=== PATIENT | female | born 1970 | race Caucasian/White ===

== ENCOUNTER → 2018-01-18 12:15 | Outpatient (CLI) | payer BC, SELFPAY ==
--- NOTE | 2018-01-18 12:26 | XR_ITS ---
XR chest 2V HISTORY: ITS.REASON: ACUTE RESPIRATORY INFECTION ORDERING PHYSICIAN: Darlene Johnson PATIENT AGE: 47 years COMPARISON: 06/03/2014 FINDINGS: Unremarkable cardiovascular structures. Consolidation is present in the right lower lobe consistent with pneumonia. Chronic changes are present in the left lower lobe. Upper lobes are clear. No acute bony anomalies. IMPRESSION: Right lower lobe pneumonia
== END ==
PROVIDERS: PCP Family Medicine; Visit Provider Nurse Practitioner Family
DX: J22 Unspecified acute lower respiratory infection (principal)
CPT/HCPCS: 71046

== ENCOUNTER → 2018-01-21 15:06 | Outpatient (CLI) | payer BC, SELFPAY ==
--- NOTE | 2018-01-21 15:14 | CT_ITS ---
CT sinus wo con CLINICAL INDICATION: ITS.REASON: CHRONIC MAXILLARY SINUSITIS ORDERING PHYSICIAN: Flory Lora MD PATIENT AGE: 47 years TECHNIQUE:Axial, sagittal, and coronal images are generated and reviewed without contrast. All CT scans at the facility use one or more dose reduction, viz: automated exposure control; ma/kV adjustment per patient size (including targeted exams where dose is matched to indication; i.e. head); or iterative reconstruction technique. FINDINGS: There is moderate mucosal thickening involving the ethmoid sinuses on both sides greater along the posterior aspect of the ethmoids. Lobular mucosal thickening involves the floor the left maxillary sinus measuring up to 15 mm consistent with retention cysts. Tiny air-fluid level in the left maxillary sinus. Right maxillary sinus has an unremarkable appearance. The ostiomeatal complexes are patent. The sphenoid sinus and frontal sinus is unremarkable. No mastoid effusion. The middle ears are aerated. There is mild leftward nasal septal deviation. The TMJs and orbits have an unremarkable appearance. IMPRESSION: Bilateral ethmoid and left maxillary sinus disease as described above
== END ==
PROVIDERS: Family Provider Family Medicine; PCP Family Medicine; Visit Provider Family Medicine
DX: J32.0 Chronic maxillary sinusitis (principal)
CPT/HCPCS: 70486

== ENCOUNTER → 2018-01-27 16:37 | Outpatient (CLI) | payer BC, SELFPAY ==
--- NOTE | 2018-01-27 | XR_ITS ---
XR chest 2V HISTORY: ITS.REASON: SOA, COUGH, PNEUMONIA ORDERING PHYSICIAN: PATRICIA Dacosta PATIENT AGE: 47 years COMPARISON: 01/18/2018 FINDINGS: The cardiomediastinal silhouette and pulmonary vascularity are within normal limits. Right lower lobe infiltrate once again noted and may be slightly improved. Chronic changes are present in the left lung base. Upper lobes are clear. No obvious effusion. IMPRESSION: Persistent but slightly improved right lower lobe pneumonia
== END ==
PROVIDERS: PCP Family Medicine; Visit Provider Physician Assistant
DX: J18.9 Pneumonia, unspecified organism (principal)
CPT/HCPCS: 71046

== ENCOUNTER → 2018-02-11 11:09 | Outpatient (CLI) | payer BC, SELFPAY ==
--- NOTE | 2018-02-11 11:29 | XR_ITS ---
XR chest 2V HISTORY: ITS.REASON: PNEUMONIA ORDERING PHYSICIAN: PATRICIA Dacosta PATIENT AGE: 47 years COMPARISON: 01/27/2018 FINDINGS: The cardiomediastinal silhouette and pulmonary vascularity are within normal limits. Persistent chronic changes are noted in the left lower lobe. There remains patchy density in the right lung base consistent with residual atelectasis or infiltrate slightly improved. Upper lobes are clear. No acute bony anomalies. No effusion. IMPRESSION: Persistent but slightly improved right basilar airspace disease with chronic changes in the left lower lobe
== END ==
PROVIDERS: PCP Family Medicine; Visit Provider Physician Assistant
DX: J18.9 Pneumonia, unspecified organism (principal)
CPT/HCPCS: 71046; 87070; 87077; 87186; 87205

== ENCOUNTER → 2018-02-18 08:04 | Outpatient (CLI) | payer BC, SELFPAY ==
--- NOTE | 2018-02-18 08:10 | CT_ITS ---
CT chest wo con HISTORY: ITS.REASON: PNEUMONIA, COUGH, follow-up abnormal chest x-ray ORDERING PHYSICIAN: Flory Lora MD PATIENT AGE: 47 years COMPARISON: 02/11/2019, 06/11/2014 Technique: Axial images obtained. Sagittal and coronal reformatted images are also generated and reviewed. All CT scans at the facility use one or more dose reduction, viz: automated exposure control; ma/kV adjustment per patient size (including targeted exams where dose is matched to indication; i.e. head); or iterative reconstruction technique. FINDINGS: COMPARISON made to prior CT scan of 06/03/2014. There are small nodes in the mediastinum not significant change. Gas is present in the distal esophagus which is slightly distended and may be due to reflux. No mediastinal or hilar adenopathy or mass is evident. There is no evidence of pneumothorax or pneumomediastinum as was present on previous CT scan of 06/11/2014. There are scattered fibrotic changes in the right upper lobe and in the superior segment of the right lower lobe. There are peripheral infiltrates involving the lung bases with bronchial thickening and alveolar opacification having a reticulonodular interstitial fibrotic pattern as previously described but somewhat more pronounced.. These are chronic but have progressed compared to the previous exam. Patchy infiltrate is present within the superior segment of the lower lobes and within the right upper lobe anteriorly and right middle lobe. There is some mild subpleural opacity in the lingula. No effusions. Abdominal images are unremarkable. IMPRESSION: Progression of chronic lung disease with chronic bilateral lower lobe infiltrates with a reticular interstitial pattern and bronchial thickening. Progression of chronic interstitial pneumonitis is considered. Changes are present also in the right middle lobe and lingula.
== END ==
PROVIDERS: Family Provider Family Medicine; PCP Family Medicine; Visit Provider Family Medicine
DX: J18.9 Pneumonia, unspecified organism (principal)
CPT/HCPCS: 71250

== ENCOUNTER → 2018-03-10 12:30 | Outpatient (CLI) | payer BC, SELFPAY ==
[2018-03-10 14:00] LABS: Basophils % 0.2 % (0.1-2.0); Eosinophils % 0.4 % (0.1-12.0); Hematocrit 33.8 % (37.0-47.0); Hemoglobin 12.1 g/dL (12.2-16.2); Lymphocytes # 0.4 K/mm3 (0.7-4.5); Lymphocytes % 5.9 K/mm3 (10-50); Mean Corpuscular HGB Conc 35.7 g/dL (31.8-35.4); Mean Corpuscular Hemoglobin 35.2 pg (27.0-31.2); Mean Corpuscular Volume 98.8 fl (81-99); Mean Platelet Volume 7.6 fl (7.4-10.4); Monocytes # 0.2 K/mm3 (0.1-1.0); Monocytes % 2.9 % (1.7-9.3); Neutrophils # 5.6 K/mm3 (1.8-7.8); Neutrophils % 90.6 % (37.0-80.0); Platelet Count 177 K/mm3 (142-424); Red Blood Count 3.42 M/mm3 (4.20-5.40); Red Cell Distribution Width 16.8 % (11.5-17.5); Reticulocyte % (Auto) 1.5 % (0.9-3.2); White Blood Count 6.2 K/mm3 (4.8-10.8)
[2018-03-10 14:04] LABS: MANUAL DIFFERENTIAL MANUAL DIFFERENTIAL (MANUAL DIFF)
[2018-03-10 14:09] LABS: Alanine Aminotransferase 15 U/L (12-78); Albumin/Globulin Ratio 1.2 (1.1-1.8); Alkaline Phosphatase 67 U/L (46-116); Anion Gap 8.9 mEq/L (5-15); Aspartate Amino Transferase 8 U/L (15-37); Bilirubin,Total 0.3 mg/dL (0.2-1.0); Blood Urea Nitrogen 10 mg/dL (7-18); Calcium 9.7 mg/dL (8.5-10.1); Carbon Dioxide 30 mmol/L (21.0-32.0); Chloride 103 mmol/L (98-107); Creatinine,Serum 0.78 mg/dL (0.55-1.02); Estimated Glomerular Filt Rate 80 ml/min (>60); GFR (African American) 96 ML/MIN (>60); Globulin 3.3 gm/dl (1.3-3.2); Glucose 100 mg/dL (74-106); Potassium 4.9 mmoL/L (3.5-5.1); Sodium 137 mmol/L (136-145); Total Protein,Serum 7.3 gm/dL (6.4-8.2)
[2018-03-10 20:04] LABS: Lymphocytes % 12 % (10-50); Neutrophils % 88 % (42-76); Total Cells Counted 100
[2018-03-10 20:05] LABS: Ovalocytes 1+; Platelet Estimate Normal; Poikilocytosis 2+
[2018-03-10 20:07] LABS: Tear Drop Cells 1+
[2018-03-11 13:58] LABS: Erythropoietin 50.8 mIU/mL (2.6-18.5)
== END ==
PROVIDERS: Visit Provider Internal Medicine
DX: D64.9 Anemia, unspecified (principal)
CPT/HCPCS: 36415; 80053; 82668; 85007; 85025; 85044

== ENCOUNTER → 2018-10-20 12:48 | Outpatient (CLI) | payer BC, SELFPAY ==
--- NOTE | 2018-10-20 12:53 | MR_ITS ---
MR shoulder LT wo con HISTORY:Left shoulder pain with limited range of motion ITS.REASON: ACUTE PAIN OF LEFT SHOULDER ORDERING PHYSICIAN: Flory Lora MD PATIENT AGE: 48 years Comparison: None TECHNIQUE: Standard multiplanar multiecho sequences are performed without contrast. FINDINGS: There is thickening of the supraspinatus tendon with discontinuity of the fibers superiorly and distally consistent with supraspinatus tendon tear. The infraspinatus, subscapularis, teres minor tendons appear intact. There is mild thickening of the subscapularis tendon. There is an oval area of slight decreased T2 signal in the infra-acromial region measuring 13 x 4 mm. An additional oval area of decreased T2 signal is present along the distal aspect of the supraspinatus tendon at 16 x 5 mm. These are of uncertain etiology. The bicipital tendon is in place. No obvious labral tear. No significant effusion. No obvious fracture. IMPRESSION: There does appear to be a full-thickness tear involving the posterior aspect of the supraspinatus tendon and the distal aspect of the supraspinatus tendon. Decreased T2 signal is noted in the infra-acromial region as described above. Etiology is uncertain. Has patient had any type of shoulder joint injection? Scar tissue is considered. Indirect MR arthrography without and with IV contrast may be of further value.
== END ==
PROVIDERS: PCP Family Medicine; Visit Provider Family Medicine
DX: M25.512 Pain in left shoulder (principal)
CPT/HCPCS: 73221

== ENCOUNTER → 2018-10-29 09:55 | Outpatient (CLI) | payer BC, SELFPAY ==
--- NOTE | 2018-10-29 10:02 | XR_ITS ---
XR shoulder LT min 2V HISTORY: Left shoulder pain ITS.REASON: grashy, scapular y and axillary views ORDERING PHYSICIAN: Valeria Parsons MD PATIENT AGE: 48 years Comparison: None FINDINGS: No fracture or dislocation. No lytic or blastic change. There is normal mineralization. The joint spaces are well-preserved. No significant degenerative/arthritic changes. No erosive changes evident. IMPRESSION: Negative, no acute finding
== END ==
PROVIDERS: PCP Family Medicine; Visit Provider Orthopaedic Surgery
DX: M25.512 Pain in left shoulder (principal)
CPT/HCPCS: 73030

== ENCOUNTER → 2018-11-26 10:38 | Outpatient (CLI) | payer BC, SELFPAY ==
--- NOTE | 2018-11-26 10:43 | XR_ITS ---
XR chest 2V HISTORY: Cough, abnormal breath sounds ITS.REASON: RALES ORDERING PHYSICIAN: PATRICIA Dacosta PATIENT AGE: 48 years COMPARISON: 02/11/2018 FINDINGS: The cardiomediastinal silhouette and pulmonary vascularity are within normal limits. Chronic changes are present in the left lung base. Patchy density is present in the right lung base medially may be due to a small area of pneumonia. Remaining lungs are clear. No acute bony abnormalities. IMPRESSION: Right basilar infiltrate
== END ==
PROVIDERS: PCP Family Medicine; Visit Provider Physician Assistant
DX: R09.89 Other specified symptoms and signs involving the circulatory and respiratory systems (principal)
CPT/HCPCS: 71046

== ENCOUNTER → 2019-12-19 14:35 | Outpatient (CLI) | payer BC, SELFPAY ==
--- NOTE | 2019-12-19 14:39 | XR_ITS ---
PROCEDURE: XR CHEST 2V CLINICAL HISTORY: INTERSTITIAL LUNG DISEASE Cough and hoarseness COMPARISON: CXR2V XR chest 2V from 01/27/2018 CXR2V XR chest 2V from 02/11/[address] chest wo con from 02/18/2018 CXR2V XR chest 2V from 11/26/2018 FINDINGS: The cardiomediastinal silhouette and pulmonary vascularity are within normal limits. There are atelectatic changes in both lung bases. No lobar consolidation or collapse and no significant change from 11/26/2018. No acute bony abnormalities. IMPRESSION: Bibasilar atelectasis or fibrosis not significantly changed Dictated by: Blaine Tijerina MD 12/19/2019 15:13 Electronically signed by Blaine Tijerina MD in [place] 12/19/2019 15:13
== END ==
PROVIDERS: PCP Family Medicine; Visit Provider Family Medicine
DX: J84.9 Interstitial pulmonary disease, unspecified (principal)
CPT/HCPCS: 71046

== ENCOUNTER → 2020-06-18 15:09 | Outpatient (CLI) | payer BC, SELFPAY ==
--- NOTE | 2020-06-18 15:14 | US_ITS ---
PROCEDURE: US ABDOMEN LIMITED CLINICAL INDICATION: SUPRAPUBIC TENDERNESS Full mass in the left superior pubic region COMPARISON: No exams were available for comparison FINDINGS: In the left suprapubic area there is an unusual area of echogenicity oval in nature measuring 1.5 x 0.7 cm. This is isodense slightly hyperechoic with a central area of decreased echogenicity. There may be a track leading to the subcutaneous tissues from this region. IMPRESSION: Usual area of echogenicity in the subcutaneous region in the left suprapubic area with questionable track. This could be due to an atypical lipoma with central liquefaction. Sebaceous cyst or abscess is also consideration. CT or MRI may provide further evaluation if clinically desired. Dictated by: Blaine Tijerina MD 06/18/2020 16:28 Blaine Tijerina MD in [place] 06/18/2020 16:28
== END ==
PROVIDERS: PCP Family Medicine; Visit Provider Nurse Practitioner Family
DX: R10.819 Abdominal tenderness, unspecified site (principal)
CPT/HCPCS: 76705

== ENCOUNTER → 2021-05-01 16:19 | Outpatient (CLI) | payer BC, SELFPAY ==
[2021-05-01 16:44] LABS: Adenovirus,PCR Not Detected (NotDetected); Bordetella Pertussis Not Detected (NotDetected); Chlamydophila Pneumoniae, PCR Not Detected (NotDetected); Coronavirus 19, PCR Not Detected (NotDetected); Coronavirus 229E Not Detected (NotDetected); Coronavirus NL63 Not Detected (NotDetected); Coronavirus OC43 Not Detected (NotDetected); Coronovirus HKU1,PCR Not Detected (NotDetected); Human Metapneumovirus Not Detected (NotDetected); Influenza A, PCR Not Detected (NotDetected); Influenza AH1, 2009 Not Detected (NotDetected); Influenza AH1, PCR Not Detected (NotDetected); Influenza AH3,PCR Not Detected (NotDetected); Influenza B, PCR Not Detected (NotDetected); Mycoplasma Pneumoniae, PCR Not Detected (NotDetected); Parainfluenza 1, PCR Not Detected (NotDetected); Parainfluenza 2, PCR Not Detected (NotDetected); Parainfluenza 3, PCR Not Detected (NotDetected); Parainfluenza 4, PCR Not Detected (NotDetected); Rhinovirus/Enterovirus Not Detected (NotDetected)
[2021-05-01 17:06] LABS: Basophils # 0.1 K/mm3 (0-0.2); Basophils % 0.7 % (0.1-2.0); Eosinophils % 0.3 % (0.1-12.0); Hematocrit 36.6 % (37.0-47.0); Hemoglobin 12.4 g/dL (12.2-16.2); Lymphocytes # 1.2 K/mm3 (0.7-4.5); Lymphocytes % 13.3 % (10-50); Mean Corpuscular Hemoglobin 26.9 pg (27.0-31.2); Mean Corpuscular Volume 79.1 fl (81-99); Mean Platelet Volume 7.4 fl (7.4-10.4); Monocytes # 0.5 K/mm3 (0.1-1.0); Monocytes % 5.2 % (1.7-9.3); Neutrophils # 7.1 K/mm3 (1.8-7.8); Neutrophils % 80.4 % (37.0-80.0); Platelet Count 294 K/mm3 (142-424); Red Blood Count 4.62 M/mm3 (4.20-5.40); Red Cell Distribution Width 15.4 % (11.5-17.5); White Blood Count 8.9 K/mm3 (4.8-10.8)
[2021-05-02 07:11] LABS: Respiratory Syncytial Virus Detected (NotDetected)
== END ==
PROVIDERS: PCP Family Medicine; Visit Provider Physician Assistant
DX: Z20.822 Contact with and (suspected) exposure to COVID-19 (principal); B97.4 Respiratory syncytial virus as the cause of diseases classified elsewhere
CPT/HCPCS: 36415; 85025; 87581; 87633; 87798

== ENCOUNTER 2021-06-02 14:16 | Emergency (ER) | payer BC, SELFPAY ==
[2021-06-02 16:48] VITALS: BP 154/90; PULSE 91; RESP 19; TEMP 37.2; O2SAT 99; BMI 29.0
--- NOTE | 2021-06-02 17:37 | HMH.EDUTC ---
[facility] [place] Disposition Clinical Impression: Exposure to COVID-19 virus Sinusitis Qualifiers: Sinusitis location: unspecified location Chronicity: unspecified Qualified Code(s): J32.9 - Chronic sinusitis, unspecified Disposition: Home, Self-Care Condition on Discharge: Good Instructions: DI for COVID-19 (Suspected or Confirmed ), Preventing the Spread of Coronavirus Discharge Instructions Additional Instructions: *Monitor Temp, Over the counter Motrin or Tylenol as directed/as needed Tylenol every 4 hours and Motrin every 6 hours (as long as your family doctor has told you that you can take it) for fever or pain. and straight to ER if unable to lower temp less than 101.0 after medication given *Warm salt water gargles may help to soothe the throat *Throat Lozenges *Warm fluids like tea with honey may help to soothe the throat *Sleep elevated *Humidifier/Vaporizer Make sure to inform the Warfarin Clinic tomorrow about you being on Antibiotics so they can adjust your medication if needed Follow up IMMEDIATELY for new or worsening symptoms or no Noticeable improvement over the next 48-72 hours. 911 for difficulty breathing or swallowing You were tested for today for COVID19 your test result should be back in the next 24-48 hours, You was given handout for instructions to log onto the [facility] Portal to view your result if you are unable to log on you may call You was given a handout with instructions for Self Quarantine and Self isolation for while you wait on test results and what to do if they are positive If you are positive the Health Dept will be contacting you also Make sure to take your Vitamins Vit. C Vit D and Zinc if you can take them Prescriptions: Benzonatate [Tessalon Perle 100mg Cap*] 100 mg PO TID PRN #30 cap PRN Reason: Cough Transmission Status: Pending to [id number] Azithromycin [Z-Yoel 250mg Tab] 250 mg PO DIRECTED #6 tab [facility]: [id number] Referrals: Flory Lora MD [Primary Care Provider] - As needed Forms: Work/School Release Time of Disposition: 17:52 Medical Decision Making - Cristian Inquiry Pt receiving controlled substance: No Cristian was queried for this patient: No Vital Signs: 06/02/21 16:48 Temperature 99.0 F Temperature Source Oral Pulse Rate [Right Brachial] 91 H Respiratory Rate 19 Blood Pressure [Right Arm] 154/90 H Blood Pressure Mean [Right Arm] 111 Blood Pressure Source [Right Arm] Automatic Cuff Blood Pressure Position [Right Arm] Sitting 02 Sat by Pulse Oximetry 99 Oxygen Delivery Method Room Air Orders (Tests/Meds): ORDERS Category Date Time Status Covid-19 Nasal PCR ([facility]) Routine Lab 06/02/21 16:18 Received [facility] [place] HPI - General Stated complaint: covid test, exposure Time Seen by Provider: 06/02/21 17:37 Mode of Arrival: Ambulatory Source of Information: Patient Description of Symptoms (Recalled from Triage Doc. by RN): covid test, chest congestion, cough, fatigue, headache HEENT Symptoms (Recalled from RN notes): Yes Resp Symptoms (Recalled from RN notes): Yes Skin Symptoms (Recalled from RN notes): No MS Symptoms (Recalled from RN notes): No Functional Status (Recalled from RN notes): yes - History of Present Illness Provider Complaint: Patient states that recently tested positive for COVID states that she has been having sinus pain and pressure along with COVID symptoms such as cough,chest congestion, scratchy throat and body aches with nagging cough States that today she was feeling bad still so she came in to get checked - Related Data Home Medications Medication Instructions Recorded Confirmed calcium carbonate 600 mg calcium 600 mg PO BID tab 03/10/18 10/13/19 (1,500 mg) tablet ezetimibe 10 mg tablet 10 mg PO DAILY tab 10/29/18 10/13/19 mycophenolate mofetil 500 mg tablet 500 mg PO BID 10/29/18 10/13/19 omeprazole 20 mg capsule,delayed 20 mg PO DAILY 90 Days #90 cap
[2021-06-02 18:09] VITALS: BP 154/90; PULSE 91; RESP 19; TEMP 37.2; O2SAT 99
== END 2021-06-02 18:09 | disposition home or self-care (01) ==
PROVIDERS: Emergency Provider Nurse Practitioner; PCP Family Medicine
DX: U07.1 COVID-19 (principal); J32.9 Chronic sinusitis, unspecified; Z87.442 Personal history of urinary calculi; E78.5 Hyperlipidemia, unspecified; I10 Essential (primary) hypertension; Z79.899 Other long term (current) drug therapy; Z88.8 Allergy status to other drugs, medicaments and biological substances
CPT/HCPCS: 99202; C9803; G0463; U0003; U0005

== ENCOUNTER → 2021-06-14 15:05 | Outpatient (CLI) | payer BC, SELFPAY ==
--- NOTE | 2021-06-14 15:22 | XR_ITS ---
PROCEDURE: XR CHEST 2V CLINICAL HISTORY: HX OF COVID 19 COMPARISON: CR CXR2V XR chest 2V from 02/11/[address] chest wo con from 02/18/2018 CR CXR2V XR chest 2V from 11/26/2018 CR XR CHEST 2V from 12/19/2019 FINDINGS: The cardiomediastinal silhouette and pulmonary vascularity are within normal limits. There are chronic changes in the lung bases on both sides. No acute bony abnormalities. IMPRESSION: Chronic changes in the lung bases otherwise negative Dictated by: Blaine Tijerina MD 06/14/2021 15:58 Blaine Tijerina MD in [place] 06/14/2021 15:58
[2021-06-14 15:33] LABS: Basophils % 0.3 % (0.1-2.0); Eosinophils # 0.1 K/mm3 (0.0-0.4); Eosinophils % 0.9 % (0.1-12.0); Hematocrit 45.5 % (37.0-47.0); Hemoglobin 14.8 g/dL (12.2-16.2); Lymphocytes # 1.3 K/mm3 (0.7-4.5); Lymphocytes % 8.9 % (10-50); Mean Corpuscular HGB Conc 32.4 g/dL (31.8-35.4); Mean Corpuscular Hemoglobin 27.6 pg (27.0-31.2); Mean Corpuscular Volume 85.3 fl (81-99); Mean Platelet Volume 6.5 fl (7.4-10.4); Monocytes # 0.6 K/mm3 (0.1-1.0); Monocytes % 4.2 % (1.7-9.3); Neutrophils # 12.6 K/mm3 (1.8-7.8); Neutrophils % 85.8 % (37.0-80.0); Platelet Count 413 K/mm3 (142-424); Red Blood Count 5.34 M/mm3 (4.20-5.40); Red Cell Distribution Width 14.9 % (11.5-17.5); White Blood Count 14.7 K/mm3 (4.8-10.8)
[2021-06-14 15:35] LABS: MANUAL DIFFERENTIAL MANUAL DIFFERENTIAL (MANUAL DIFF)
[2021-06-14 16:23] LABS: Chloride 99 mmol/L (98-107)
[2021-06-14 16:24] LABS: Potassium 3.8 mmoL/L (3.5-5.1); Sodium 141 mmol/L (136-145)
[2021-06-14 16:26] LABS: Amylase 86 U/L (30-110); Anion Gap 12.8 mEq/L (5-15); Blood Urea Nitrogen 19 mg/dl (7-17); Carbon Dioxide 33 mmol/L (22.0-30.0); Estimated Glomerular Filt Rate 76 ml/min (>60); GFR (African American) 92 ML/MIN (>60)
[2021-06-14 16:27] LABS: Alanine Aminotransferase 48 U/L (12-78); Albumin Level 3.9 g/dl (3.5-5.0); Albumin/Globulin Ratio 1.5 (1.1-1.8); Alkaline Phosphatase 79 U/L (38-126); Aspartate Amino Transferase 26 U/L (14-36); Bilirubin,Total 0.4 mg/dl (0.2-1.3); Calcium 9.6 mg/dl (8.4-10.2); Globulin 2.6 g/dL (1.3-3.2); Glucose 100 mg/dl (74-100); Lipase 275 U/L (23-300); Total Protein,Serum 6.5 g/dl (6.3-8.2)
[2021-06-14 18:11] LABS: Lymphocytes % 11 % (10-50); Monocytes % 3 % (2-9); Neutrophils % 80 % (42-76); Platelet Estimate Normal; RBC Morphology Normal; Total Cells Counted 100
== END ==
PROVIDERS: Visit Provider Physician Assistant
DX: K52.9 Noninfective gastroenteritis and colitis, unspecified (principal); Z86.16 Personal history of COVID-19
CPT/HCPCS: 36415; 71046; 80053; 82150; 83690; 85007; 85025

== ENCOUNTER → 2021-08-07 11:53 | Outpatient (CLI) | payer BC, SELFPAY ==
[2021-08-07 12:02] LABS: Microscopic, Urine URINE MICROSCOPIC (MICROSCOPIC)
[2021-08-07 12:21] LABS: Appearance,Urine CLEAR (Clear); Bilirubin,Urine Negative (Negative); Blood, Urine 1+ (Negative); Color,Urine YELLOW (Yellow); Glucose,Urine (UA) Negative (Negative); Ketones,Urine Negative (Negative); Leukocyte Esterase,Urine 2+ (Negative); Nitrate,Urine Negative (Negative); Protein,Urine Negative (Negative); Specific Gravity, Urine >= 1.030 (1.005-1.030); Urobilinogen,Urine 0.2 EU/dl (0.2)
[2021-08-07 12:23] LABS: Basophils % 0.5 % (0.1-2.0); Eosinophils # 0.2 K/mm3 (0.0-0.4); Eosinophils % 2.3 % (0.1-12.0); Hemoglobin 13.1 g/dL (12.2-16.2); Lymphocytes # 1.2 K/mm3 (0.7-4.5); Lymphocytes % 16.6 % (10-50); Mean Corpuscular HGB Conc 32.7 g/dL (31.8-35.4); Mean Corpuscular Hemoglobin 27.8 pg (27.0-31.2); Mean Corpuscular Volume 84.8 fl (81-99); Monocytes # 0.6 K/mm3 (0.1-1.0); Monocytes % 7.7 % (1.7-9.3); Neutrophils # 5.4 K/mm3 (1.8-7.8); Platelet Count 327 K/mm3 (142-424); Red Blood Count 4.72 M/mm3 (4.20-5.40); Red Cell Distribution Width 15.4 % (11.5-17.5); White Blood Count 7.4 K/mm3 (4.8-10.8)
[2021-08-07 12:46] LABS: Chloride 103 mmol/L (98-107); Potassium 3.6 mmoL/L (3.5-5.1); Sodium 142 mmol/L (136-145)
[2021-08-07 12:48] LABS: Alanine Aminotransferase 12 U/L (12-78); Alkaline Phosphatase 66 U/L (38-126); Aspartate Amino Transferase 20 U/L (14-36); Bilirubin,Total 0.3 mg/dl (0.2-1.3); Blood Urea Nitrogen 10 mg/dl (7-17); Estimated Glomerular Filt Rate 66 ml/min (>60); GFR (African American) 80 ML/MIN (>60)
[2021-08-07 12:49] LABS: Albumin Level 4.2 g/dl (3.5-5.0); Albumin/Globulin Ratio 1.9 (1.1-1.8); Anion Gap 9.6 mEq/L (5-15); Calcium 9.1 mg/dl (8.4-10.2); Carbon Dioxide 33 mmol/L (22.0-30.0); Globulin 2.2 g/dL (1.3-3.2); Glucose 94 mg/dl (74-100); Total Protein,Serum 6.4 g/dl (6.3-8.2)
[2021-08-07 12:54] LABS: C-Reactive Protein 2.9 mg/L (0-4)
[2021-08-07 13:05] LABS: Erythrocyte Sedimentation Rate 20 mm/hr (0-20)
[2021-08-08 07:01] LABS: Complement C3 145 mg/dL (82-167)
== END ==
PROVIDERS: Visit Provider Nurse Practitioner Family
DX: M32.9 Systemic lupus erythematosus, unspecified (principal); I73.00 Raynaud's syndrome without gangrene; Z79.899 Other long term (current) drug therapy
CPT/HCPCS: 36415; 80053; 81001; 85025; 85651; 86140; 86161; 87086

== ENCOUNTER → 2021-11-29 07:18 | Outpatient (CLI) | payer BC, SELFPAY ==
[2021-11-29 07:26] LABS: Microscopic, Urine URINE MICROSCOPIC (MICROSCOPIC)
[2021-11-29 07:47] LABS: Basophils # 0.1 K/mm3 (0-0.2); Eosinophils # 0.1 K/mm3 (0.0-0.4); Eosinophils % 1.9 % (0.1-12.0); Hematocrit 39.3 % (37.0-47.0); Lymphocytes # 1.4 K/mm3 (0.7-4.5); Lymphocytes % 26.9 % (10-50); Mean Corpuscular Hemoglobin 27.2 pg (27.0-31.2); Mean Corpuscular Volume 82.5 fl (81-99); Mean Platelet Volume 8.4 fl (7.4-10.4); Monocytes # 0.4 K/mm3 (0.1-1.0); Monocytes % 7.7 % (1.7-9.3); Neutrophils # 3.3 K/mm3 (1.8-7.8); Neutrophils % 62.4 % (37.0-80.0); Platelet Count 332 K/mm3 (142-424); Red Blood Count 4.76 M/mm3 (4.20-5.40); Red Cell Distribution Width 15.9 % (11.5-17.5); White Blood Count 5.3 K/mm3 (4.8-10.8)
[2021-11-29 07:51] LABS: Appearance,Urine CLEAR (Clear); Bilirubin,Urine Negative (Negative); Blood, Urine 2+ (Negative); Color,Urine YELLOW (Yellow); Glucose,Urine (UA) Negative (Negative); Ketones,Urine Negative (Negative); Leukocyte Esterase,Urine Negative (Negative); Nitrate,Urine Negative (Negative); Protein,Urine Negative (Negative); Urobilinogen,Urine 0.2 EU/dl (0.2)
[2021-11-29 08:19] LABS: Bacteria,Urine Trace /lpf
[2021-11-29 08:37] LABS: Chol/HDL Ratio 3.2 (1-3.5); Cholesterol 167 mg/dl (140-200); HDL Cholesterol 52 mg/dl (40-60); Triglycerides 140 mg/dl (30-150); VLDL Cholesterol 28 mg/dL (0-40)
[2021-11-29 08:47] LABS: Direct LDL Cholesterol 78.44 mg/dL (100-129)
[2021-11-29 09:25] LABS: Vitamin B12 979 pg/mL (239-931)
[2021-11-29 12:25] LABS: Erythrocyte Sedimentation Rate 53 mm/hr (0-20)
[2021-11-29 13:41] LABS: Alanine Aminotransferase 24 U/L (12-78); Albumin Level 3.9 g/dl (3.5-5.0); Albumin/Globulin Ratio 1.8 (1.1-1.8); Alkaline Phosphatase 59 U/L (38-126); Anion Gap 12.8 mEq/L (5-15); Aspartate Amino Transferase 24 U/L (14-36); Bilirubin,Total 0.3 mg/dl (0.2-1.3); Blood Urea Nitrogen 10 mg/dl (7-17); Calcium 8.9 mg/dl (8.4-10.2); Carbon Dioxide 26 mmol/L (22.0-30.0); Chloride 104 mmol/L (98-107); Estimated Glomerular Filt Rate 76 ml/min (>60); GFR (African American) 92 ML/MIN (>60); Globulin 2.2 g/dL (1.3-3.2); Glucose 84 mg/dl (74-100); Potassium 3.8 mmoL/L (3.5-5.1); Sodium 139 mmol/L (136-145); Total Protein,Serum 6.1 g/dl (6.3-8.2)
[2021-11-29 13:46] LABS: C-Reactive Protein 2.2 mg/L (0-4)
[2021-11-30 10:15] LABS: Complement C3 138 mg/dL (82-167)
[2021-11-30 14:12] LABS: Anti-DNA (DS) Ab Qn <1 IU/mL (0-9)
== END ==
PROVIDERS: Nurse Practitioner Family; Visit Provider Physician Assistant
DX: I73.00 Raynaud's syndrome without gangrene (principal); J84.9 Interstitial pulmonary disease, unspecified; M32.9 Systemic lupus erythematosus, unspecified; I10 Essential (primary) hypertension; E78.2 Mixed hyperlipidemia; E53.8 Deficiency of other specified B group vitamins; D64.9 Anemia, unspecified; Z79.899 Other long term (current) drug therapy
CPT/HCPCS: 36415; 80053; 80061; 81001; 82607; 85025; 85651; 86140; 86161; 86225

== ENCOUNTER → 2022-05-23 07:31 | Outpatient (CLI) | payer BC, SELFPAY ==
[2022-05-23 07:38] LABS: Microscopic, Urine URINE MICROSCOPIC (MICROSCOPIC)
[2022-05-23 08:10] LABS: Basophils # 0.1 K/mm3 (0-0.2); Basophils % 1.3 % (0.1-2.0); Eosinophils # 0.2 K/mm3 (0.0-0.4); Eosinophils % 2.6 % (0.1-12.0); Hematocrit 39.8 % (37.0-47.0); Hemoglobin 12.9 g/dL (12.2-16.2); Lymphocytes # 1.7 K/mm3 (0.7-4.5); Lymphocytes % 26.9 % (10-50); Mean Corpuscular HGB Conc 32.4 g/dL (31.8-35.4); Mean Corpuscular Hemoglobin 26.9 pg (27.0-31.2); Mean Corpuscular Volume 83.1 fl (81-99); Mean Platelet Volume 7.5 fl (7.4-10.4); Monocytes # 0.5 K/mm3 (0.1-1.0); Monocytes % 7.8 % (1.7-9.3); Neutrophils % 61.5 % (37.0-80.0); Platelet Count 303 K/mm3 (142-424); Red Blood Count 4.78 M/mm3 (4.20-5.40); Red Cell Distribution Width 15.8 % (11.5-17.5); White Blood Count 6.5 K/mm3 (4.8-10.8)
[2022-05-23 08:16] LABS: INR 2.94 (0.9-1.1); Prothrombin Time 29.9 seconds (10.1-12.5)
[2022-05-23 09:31] LABS: Alanine Aminotransferase 21 U/L (12-78); Albumin Level 3.9 g/dl (3.5-5.0); Albumin/Globulin Ratio 1.6 (1.1-1.8); Alkaline Phosphatase 80 U/L (38-126); Anion Gap 8.7 mEq/L (5-15); Aspartate Amino Transferase 25 U/L (14-36); Blood Urea Nitrogen 15 mg/dl (7-17); Calcium 9.5 mg/dl (8.4-10.2); Carbon Dioxide 32 mmol/L (22.0-30.0); Chloride 102 mmol/L (98-107); Estimated Glomerular Filt Rate 58 ml/min (>60); GFR (African American) 71 ML/MIN (>60); Globulin 2.4 g/dL (1.3-3.2); Glucose 90 mg/dl (74-100); Potassium 3.7 mmoL/L (3.5-5.1); Sodium 139 mmol/L (136-145); Total Protein,Serum 6.3 g/dl (6.3-8.2)
[2022-05-23 09:36] LABS: C-Reactive Protein 2.6 mg/L (0-4)
[2022-05-23 09:42] LABS: Bilirubin,Total < 0.1 mg/dl (0.2-1.3)
[2022-05-23 09:51] LABS: Erythrocyte Sedimentation Rate 14 mm/hr (0-30)
[2022-05-23 11:41] LABS: Appearance,Urine SL CLOUDY (Clear); Bilirubin,Urine Negative (Negative); Blood, Urine 2+ (Negative); Color,Urine YELLOW (Yellow); Glucose,Urine (UA) Negative (Negative); Ketones,Urine Negative (Negative); Leukocyte Esterase,Urine 2+ (Negative); Nitrate,Urine Negative (Negative); Protein,Urine Negative (Negative); Urobilinogen,Urine 0.2 EU/dl (0.2)
[2022-05-23 12:17] LABS: Bacteria,Urine Trace /lpf; WBC,Urine Occasional #/hpf (0-3)
== END ==
PROVIDERS: Family Medicine; PCP Physician Assistant; Visit Provider Internal Medicine Rheumatology
DX: M32.8 Other forms of systemic lupus erythematosus (principal); D68.51 Activated protein C resistance; Z51.81 Encounter for therapeutic drug level monitoring; Z79.01 Long term (current) use of anticoagulants; Z79.899 Other long term (current) drug therapy
CPT/HCPCS: 36415; 80053; 81001; 85025; 85610; 85651; 86140; 87086; 87088; 87186

== ENCOUNTER → 2022-08-13 14:56 | Outpatient (CLI) | payer BC, SELFPAY ==
[2022-08-13 15:40] LABS: Coronavirus 19, PCR Not Detected (NotDetected); Influenza B, PCR Not Detected (NotDetected)
[2022-08-13 15:57] LABS: Basophils # 0.1 K/mm3 (0-0.2); Basophils % 0.7 % (0.1-2.0); Eosinophils % 0.6 % (0.1-12.0); Hematocrit 39.9 % (37.0-47.0); Hemoglobin 12.6 g/dL (12.2-16.2); Lymphocytes # 0.7 K/mm3 (0.7-4.5); Mean Corpuscular HGB Conc 31.5 g/dL (31.8-35.4); Mean Corpuscular Hemoglobin 26.7 pg (27.0-31.2); Mean Corpuscular Volume 84.8 fl (81-99); Mean Platelet Volume 7.9 fl (7.4-10.4); Monocytes # 0.6 K/mm3 (0.1-1.0); Monocytes % 9.3 % (1.7-9.3); Neutrophils # 5.2 K/mm3 (1.8-7.8); Neutrophils % 78.4 % (37.0-80.0); Platelet Count 274 K/mm3 (142-424); Red Cell Distribution Width 15.4 % (11.5-17.5); White Blood Count 6.7 K/mm3 (4.8-10.8)
[2022-08-13 16:15] LABS: Influenza A, PCR Detected (NotDetected)
== END ==
PROVIDERS: PCP Physician Assistant; Visit Provider Physician Assistant
DX: Z20.822 Contact with and (suspected) exposure to COVID-19 (principal); J10.1 Influenza due to other identified influenza virus with other respiratory manifestations
CPT/HCPCS: 36415; 85025; C9803; U0003; U0005

== ENCOUNTER → 2022-09-26 12:26 | Outpatient (CLI) | payer BC, SELFPAY ==
[2022-09-26 12:35] LABS: Microscopic, Urine URINE MICROSCOPIC (MICROSCOPIC)
[2022-09-26 13:04] LABS: Basophils # 0.1 K/mm3 (0-0.2); Eosinophils % 0.2 % (0.1-12.0); Hematocrit 42.7 % (37.0-47.0); Hemoglobin 13.1 g/dL (12.2-16.2); Mean Corpuscular HGB Conc 30.7 g/dL (31.8-35.4); Mean Corpuscular Hemoglobin 26.5 pg (27.0-31.2); Mean Corpuscular Volume 86.5 fl (81-99); Mean Platelet Volume 7.6 fl (7.4-10.4); Monocytes # 0.3 K/mm3 (0.1-1.0); Monocytes % 3.4 % (1.7-9.3); Neutrophils # 7.3 K/mm3 (1.8-7.8); Neutrophils % 83.3 % (37.0-80.0); Platelet Count 369 K/mm3 (142-424); Red Blood Count 4.94 M/mm3 (4.20-5.40); Red Cell Distribution Width 15.9 % (11.5-17.5); White Blood Count 8.7 K/mm3 (4.8-10.8)
[2022-09-26 13:26] LABS: INR 1.76 (0.9-1.1); Prothrombin Time 18.4 seconds (10.1-12.5)
[2022-09-26 13:44] LABS: Alanine Aminotransferase 25 U/L (12-78); Albumin Level 4.6 g/dl (3.5-5.0); Albumin/Globulin Ratio 1.8 (1.1-1.8); Alkaline Phosphatase 72 U/L (38-126); Aspartate Amino Transferase 27 U/L (14-36); Bilirubin,Total 0.4 mg/dl (0.2-1.3); Blood Urea Nitrogen 14 mg/dl (7-17); Calcium 9.2 mg/dl (8.4-10.2); Carbon Dioxide 29 mmol/L (22.0-30.0); Chloride 100 mmol/L (98-107); Estimated Glomerular Filt Rate 58 ml/min (>60); GFR (African American) 71 ML/MIN (>60); Globulin 2.6 g/dL (1.3-3.2); Glucose 113 mg/dl (74-100); Sodium 137 mmol/L (136-145); Total Protein,Serum 7.2 g/dl (6.3-8.2)
[2022-09-26 13:49] LABS: C-Reactive Protein 4.7 mg/L (0-4)
[2022-09-26 13:59] LABS: Anion Gap 12.1 mEq/L (5-15); Potassium 4.1 mmoL/L (3.5-5.1)
[2022-09-26 14:01] LABS: Appearance,Urine CLEAR (Clear); Bilirubin,Urine Negative (Negative); Blood, Urine 2+ (Negative); Color,Urine YELLOW (Yellow); Glucose,Urine (UA) Negative (Negative); Ketones,Urine 1+ (Negative); Leukocyte Esterase,Urine 1+ (Negative); Nitrate,Urine Negative (Negative); PH,Urine 5.5 (5.0-8.5); Protein,Urine Negative (Negative); Specific Gravity, Urine 1.025 (1.005-1.030); Urobilinogen,Urine 0.2 EU/dl (0.2)
[2022-09-26 14:28] LABS: Bacteria,Urine 1+ /lpf; RBC,Urine Occasional #/hpf (0-3)
[2022-09-26 16:54] LABS: Erythrocyte Sedimentation Rate 17 mm/hr (0-30)
[2022-09-27 10:08] LABS: Complement C3 171 mg/dL (82-167)
[2022-09-29 15:29] LABS: dsDNA AB Crithidia Negative (Negative)
== END ==
PROVIDERS: PCP Family Medicine; Visit Provider Nurse Practitioner Family
DX: I73.00 Raynaud's syndrome without gangrene (principal); M32.9 Systemic lupus erythematosus, unspecified; Z51.81 Encounter for therapeutic drug level monitoring; Z79.01 Long term (current) use of anticoagulants; Z79.899 Other long term (current) drug therapy
CPT/HCPCS: 36415; 80053; 81001; 85025; 85610; 85651; 86140; 86161; 86225; 87086

== ENCOUNTER 2022-12-13 14:04 | Emergency (ER) | payer BC, SELFPAY ==
[2022-12-13 14:25] VITALS: BP 156/90; PULSE 96; RESP 20; TEMP 37.2; O2SAT 100; BMI 31.4
--- NOTE | 2022-12-13 14:51 | EXP.UTC ---
Discharge Plan Disposition Patient Disposition: Home, Self-Care Condition: Good Prescriptions Prescriptions: New azithromycin [azithromycin] 250 mg tablet 250 mg PO DIRECTED Qty: 6 0RF Rx Instructions: Take two (2) tablets on day #1, then one (1) tablet day #2 thru #5 No Action mycophenolate mofetil 500 mg tablet 500 mg PO BID prednisone 5 mg tablet 5 mg PO DAILY warfarin 4 mg tablet 4 mg PO DAILY 90 Days Qty: 90 Label Comments: pravastatin 80 mg tablet 80 mg PO DAILY 90 Days Qty: 90 Label Comments: omeprazole 20 mg capsule,delayed release(DR/EC) 20 mg PO DAILY 90 Days Qty: 90 Label Comments: ezetimibe 10 mg tablet 10 mg PO DAILY calcium carbonate [Calcium 600] 600 mg calcium (1,500 mg) tablet 600 mg PO BID montelukast 10 MG tablet 10 mg PO PM prednisone 10 MG tablet 10 mg PO BID 5 Days Qty: 10 0RF azithromycin 250 MG tablet 250 mg PO UD DOSE PK Qty: 6 0RF Rx Instructions: Take two (2) tablets today, then one (1) tablet days #2 thru #5 azithromycin 250 MG tablet 250 mg PO DIRECTED Qty: 6 0RF Rx Instructions: Take two (2) tablets on day #1, then one (1) tablet day #2 thru #5 benzonatate 100 MG capsule 100 mg PO TID PRN (Reason: Cough) Qty: 30 0RF Referrals Follow up/Referrals: Joleen Ragsdale PA [Primary Care Provider] - See instructions Activity Restrictions/Add. Instructions Additional Instructions/Restrictions: Start antibiotics today be sure to take it as ordered with the full length of time although you should start feeling better in 24-48 hours. Change toothbrush and toothpaste 24-48 hours after starting antibiotics Tylenol or Motrin as needed for fever or pain Encourage fluids, water, Gatorade, Powerade, try cold fluids, popsicles, ice cream will make it feel better You are contagious for 24 hours. Avoid kissing anyone, no eating or drinking after anyone. You are contagious. Follow-up the ER for new or worsening symptoms or no noticeable improvement over the next 24-48 hours. Follow-up with PCP this week. Clinical Impressions Clinical Impression: Strep sore throat Instructions Patient Instructions: DI for Strep Throat Discharge [facility] [place] H[place] General Stated complaint: cough,sore throat,congested Mode of Arrival: Ambulatory Source of Information: Patient Limitations: No Limitations Time Seen by Provider: 12/13/22 14:51 Description of Symptoms (Recalled from Triage Doc. by RN): PATIENT C/O COUGH, SORE THROAT, CONGESTION, AND BODY ACHES SINCE LAST NIGHT HEENT Symptoms (Recalled from RN notes): Yes Resp Symptoms (Recalled from RN notes): Yes Skin Symptoms (Recalled from RN notes): No MS Symptoms (Recalled from RN notes): No Functional Status (Recalled from RN notes): WNL History of Present Illness Provider Complaint: 52 yr old female presents for sore throat, cough and body aches since last pm Related Data Home Medications Medication Instructions Recorded Confirmed calcium carbonate 600 mg calcium 600 mg PO BID Supplement 03/10/18 10/13/19 (1,500 mg) tablet (Calcium) ezetimibe 10 mg tablet 10 mg PO DAILY Cholesterol 10/29/18 10/13/19 mycophenolate mofetil 500 mg tablet 500 mg PO BID LUPUS 10/29/18 10/13/19 omeprazole 20 mg capsule,delayed 20 mg PO DAILY GERD 90 days #90 10/29/18 10/13/19 release caps pravastatin 80 mg tablet 80 mg PO DAILY Cholesterol 90 days 10/29/18 10/13/19 #90 tabs warfarin 4 mg tablet 4 mg PO DAILY FACTOR V, DVT/PE 90 10/29/18 10/13/19 days #90 tabs prednisone 5 mg tablet 5 mg PO DAILY LUPUS 02/10/19 10/13/19 montelukast 10 mg tablet 10 mg PO PM Allergy symptoms 10/13/19 10/13/19 Previous Rx's Medication Instructions Recorded azithromycin 250 mg tablet 250 mg PO UD DOSE PK #6 tabs 10/13/19 prednisone 10 mg tablet 10 mg PO BID 5 days #10 tabs 10/13/19 azithromycin 250 mg tablet 250 mg PO DIRECT
[2022-12-13 14:59] VITALS: BP 156/90; PULSE 96; RESP 20; TEMP 37.2; O2SAT 100
[2022-12-13 15:01] LABS: UTC Influenza A Antigen Negative (Negative); UTC Influenza B Antigen Negative (Negative); UTC Strep Screen (Rapid) Positive (Negative)
== END 2022-12-13 15:06 | disposition home or self-care (01) ==
PROVIDERS: Emergency Provider Nurse Practitioner Family; PCP Physician Assistant
DX: J02.0 Streptococcal pharyngitis (principal); R05.1 Acute cough
CPT/HCPCS: 87804; 87880; 99212; 99214; G0463

== ENCOUNTER 2023-10-17 10:57 | Emergency (ER) | payer BC, SELFPAY ==
[2023-10-17 11:10] VITALS: BP 141/82; PULSE 91; RESP 20; TEMP 37.2; O2SAT 98; BMI 25.9
--- NOTE | 2023-10-17 11:20 | ED_ITS ---
Discharge Plan Disposition Patient Disposition: Home, Self-Care Condition: Good Prescriptions Prescriptions: New cephalexin [cephalexin] 500 mg tablet 500 mg PO BID 10 Days Qty: 20 0RF fluticasone propionate [fluticasone propionate] 50 mcg/actuation spray ,suspension 1 spray intranasal DAILY Qty: 9.9 0RF No Action mycophenolate mofetil 500 mg tablet 500 mg PO BID warfarin 4 mg tablet 4 mg PO DAILY 90 Days Qty: 90 Patient Comments: omeprazole 20 mg capsule,delayed release(DR/EC) 20 mg PO DAILY 90 Days Qty: 90 Patient Comments: calcium carbonate [Calcium 600] 600 mg calcium (1,500 mg) tablet 600 mg PO BID montelukast 10 MG tablet 10 mg PO PM prednisone 10 mg tablet 5 mg PO DAILY amlodipine 5 mg tablet 5 mg PO DAILY rosuvastatin 20 mg tablet 20 mg PO Referrals Follow up/Referrals: Joleen Ragsdale PA [Primary Care Provider] - See instructions Activity Restrictions/Add. Instructions Additional Instructions/Restrictions: Start antibiotic patient to take as ordered for a full length of time even if you feel better. Sinus infections do not get better overnight. It may take 2-3 days to notice much improvement so be sure to use conservative measures as discussed for symptoms. Flonase 1 spray each nostril daily to help with nasal congestion, sinus and ear pressure/information Increase fluids Humidifier/vaporizer as needed Tylenol and ibuprofen as needed for fever or pain. If symptoms do not improve or get worse return or be seen in the ER Follow-up with primary care this week Clinical Impressions Clinical Impression: Sinusitis Qualifiers: Sinusitis location: maxillary Chronicity: acute Recurrence: non-recurrent Qualified Code(s): J01.00 - Acute maxillary sinusitis, unspecified Instructions Patient Instructions: DI for Sinusitis Discharge ED Provider: Miranda ([facility])Jeanne [facility] [place] HPI General Stated complaint: cough sore throat ear pain Mode of Arrival: Ambulatory Source of Information: Patient Limitations: No Limitations Time Seen by Provider: 10/17/23 11:20 Description of Symptoms (Recalled from Triage Doc. by RN): PATIENT C/O COUGH, CONGESTION, SORE THROAT AND EAR PAIN. SHE STATES SYMPTOMS STARTED ABOUT A WEEK AGO BUT HAS GOTTEN WORSE IN THE LAST 2 DAYS HEENT Symptoms (Recalled from RN notes): Yes Resp Symptoms (Recalled from RN notes): Yes Skin Symptoms (Recalled from RN notes): No MS Symptoms (Recalled from RN notes): No Functional Status (Recalled from RN notes): WNL History of Present Illness Provider Complaint: 53 yr old female presents for fever, congestion, thick dark yellow drainage, sore throat and marilia ear pain for 1 wk Related Data Home Medications Medication Instructions Recorded Confirmed calcium carbonate 600 mg calcium 600 mg PO BID Supplement 03/10/18 10/17/23 (1,500 mg) tablet (Calcium) mycophenolate mofetil 500 mg tablet 500 mg PO BID LUPUS 10/29/18 10/17/23 omeprazole 20 mg capsule,delayed 20 mg PO DAILY GERD 90 days #90 10/29/18 10/17/23 release caps warfarin 4 mg tablet 4 mg PO DAILY FACTOR V, DVT/PE 90 10/29/18 10/17/23 days #90 tabs montelukast 10 mg tablet 10 mg PO PM Allergy symptoms 10/13/19 10/17/23 amlodipine 5 mg tablet 5 mg PO DAILY 10/17/23 10/17/23 prednisone 10 mg tablet 5 mg PO DAILY 10/17/23 10/17/23 rosuvastatin 20 mg tablet 20 mg PO HS 10/17/23 10/17/23 Previous Rx's Medication Instructions Recorded cephalexin 500 mg tablet 500 mg PO BID 10 days #20 tabs 10/17/23 fluticasone propionate 50 1 spray intranasal DAILY #9.9 mL 10/17/23 mcg/actuation nasal spray,suspension Allergies Allergy/AdvReac Type Severity Reaction Status Date / Time hydroxychloroquine Allergy Verified 05/14/23 09:42 moxifloxacin [From Avelox] Allergy Verified 05/14/23 09:42 sulindac Allergy Verified 05/14/23 09:42 Worker's Comp Is this a Worker's Comp case?: No [facility] Disclaimer: The information contained in this section may have been updated after the patient was seen, as this information can be updated by other users. Medical History , DATA SECURITY ADMINISTRATOR) Factor V Leiden Folic acid deficiency anemia GERD (gastroesophageal reflux disease) Hyperlipidemia Other abnormality of red blood cells Rotator cuff tear, left Vitamin B deficiency Social History , DATA SECURITY ADMINISTRATOR) Smoking Status: Never smoker alcohol intake: never substance use type: denies use current occupational status: other Travel in the last 8 weeks: None household members: spouse housing: house ROS Obtained: Yes All systems reviewed & no additional complaints except as documented Constitutional Constitutional: Reports system reviewed and no additional complaints, except as documented, Reports as per HPI and Reports fever(s) Eyes Eyes: Reports system reviewed and no additional complaints, except as documented ENT Ears, Nose, Mouth, and Throat: Reports system reviewed and no additional complaints, except as documented, Reports as per HPI, Reports otalgia, Reports nasal congestion, Reports nasal discharge, Reports sinus pain, Reports sinus pressure and Reports sore throat Cardiovascular Cardiovascular: Reports system reviewed and no additional complaints, except as documented Respiratory Respiratory: Reports system reviewed and no additional complaints, except as documented Musculoskeletal Musculoskeletal: Reports system reviewed and no additional complaints, except as documented Neurologic Neurologic: Reports system reviewed and no additional complaints, except as documented Endocrine Endocrine: Reports system reviewed and no additional complaints, except as documented Hematologic/Lymphatic Henatologic/Lymphatic: Reports system reviewed and no additional complaints, except as documented Allergic/Immunologic Allergic/Immunologic: Reports system reviewed and no additional complaints, except as documented Physical Exam General General appearance: alert and in no apparent distress Head Head exam: atraumatic Eye Eye exam: Present normal appearance and PERRL ENT ENT exam: Present normal exam, normal oropharynx, mucous membranes moist and TM's normal bilaterally Respiratory Respiratory exam: Present normal lung sounds bilaterally Cardiovascular Cardiovascular exam: Present regular rate and normal rhythm Neurological Exam Neurological exam: Present alert and oriented X3 Skin Skin exam: Present warm and intact Medical Decision Making Medical Records Medical records reviewed: Yes I reviewed the patient's medical records. Cristian Inquiry Pt receiving controlled substance: No Cristian was queried for this patient: No Vital Signs: 10/17/23 11:10 Temperature 98.9 F Temperature Source Oral Pulse Rate [Left Brachial] 91 H Respiratory Rate 20 Blood Pressure [Left Arm] 141/82 H Blood Pressure Mean [Left Arm] 101 Blood Pressure Source [Left Arm] Automatic Cuff Blood Pressure Position [Left Arm] Sitting 02 Sat by Pulse Oximetry 98 Oxygen Delivery Method Room Air Lab Data Lab results reviewed: Yes I reviewed the patient's lab results.
[2023-10-17 11:23] LABS: UTC Strep Screen (Rapid) Negative (Negative)
[2023-10-17 11:43] LABS: UTC Influenza A Antigen Negative (Negative); UTC Influenza B Antigen Negative (Negative)
[2023-10-17 11:44] VITALS: BP 141/82; PULSE 91; RESP 20; TEMP 37.2; O2SAT 98
== END 2023-10-17 11:47 | disposition home or self-care (01) ==
PROVIDERS: Emergency Provider Nurse Practitioner Family; PCP Physician Assistant
DX: J01.00 Acute maxillary sinusitis, unspecified (principal); R50.9 Fever, unspecified; H92.03 Otalgia, bilateral; R09.81 Nasal congestion; R07.0 Pain in throat; K21.9 Gastro-esophageal reflux disease without esophagitis; E78.5 Hyperlipidemia, unspecified
CPT/HCPCS: 87804; 87880; 99212; 99214; G0463

== ENCOUNTER 2024-03-30 13:20 | Outpatient (CLI) | payer BC, SELFPAY ==
--- NOTE | 2024-03-30 13:21 | MM_ITS ---
PROCEDURE INFORMATION: Exam: MG Bilateral Screening 3D Mammography Exam date and time: 03/30/2024 1:08 PM Age: 53 years old Clinical indication: Screening examination TECHNIQUE: Imaging protocol: Bilateral Screening tomosynthesis and 2D mammography including computer-aided detection (CAD) when performed. COMPARISON: 1. MG DMSB DIG MAMM-SCREEN MARLON 02/15/2016 3:32 PM 2. MG DMSB DIG MAMM-SCREEN MARLON 08/04/2013 3:37 PM FINDINGS: MAMMOGRAPHY: Breast composition: There are scattered areas of fibroglandular density. Mass: None. Architectural distortion: None. Calcifications: No suspicious calcifications. Asymmetric density: None. Skin thickening: None. Axillary adenopathy: None. IMPRESSION: No mammographic evidence of malignancy. Annual screening is recommended unless otherwise clinically indicated. ASSESSMENT: BI-RADS Category 1: Negative
== END 2024-03-30 23:59 | disposition home or self-care (01) ==
LOC: RAD 13:21
PROVIDERS: PCP Physician Assistant; Visit Provider Obstetrics & Gynecology
DX: Z12.31 Encounter for screening mammogram for malignant neoplasm of breast (principal)
CPT/HCPCS: 77063; 77067

== ENCOUNTER 2024-07-20 07:14 | Outpatient (CLI) | payer BC, SELFPAY ==
[2024-07-20 07:24] LABS: Microscopic, Urine URINE MICROSCOPIC (MICROSCOPIC)
[2024-07-20 08:06] LABS: Appearance,Urine CLEAR (Clear); Basophils # 0.1 K/mm3 (0-0.2); Bilirubin,Urine Negative (Negative); Blood, Urine 2+ (Negative); Color,Urine YELLOW (Yellow); Eosinophils # 0.2 K/mm3 (0.0-0.4); Eosinophils % 2.5 % (0.1-12.0); Glucose,Urine (UA) Negative (Negative); Hematocrit 39.6 % (37.0-47.0); Hemoglobin 13.3 g/dL (12.2-16.2); Ketones,Urine Negative (Negative); Leukocyte Esterase,Urine 1+ (Negative); Lymphocytes # 1.9 K/mm3 (0.7-4.5); Lymphocytes % 28.7 % (10-50); Mean Corpuscular HGB Conc 33.5 g/dL (31.8-35.4); Mean Corpuscular Hemoglobin 27.6 pg (27.0-31.2); Mean Corpuscular Volume 82.4 fl (81-99); Monocytes # 0.5 K/mm3 (0.1-1.0); Monocytes % 7.1 % (1.7-9.3); Neutrophils # 4.1 K/mm3 (1.8-7.8); Neutrophils % 60.7 % (37.0-80.0); Nitrate,Urine Negative (Negative); Platelet Count 259 K/mm3 (142-424); Protein,Urine Negative (Negative); Red Cell Distribution Width 15.5 % (11.5-17.5); Specific Gravity, Urine 1.025 (1.005-1.030); Urobilinogen,Urine 0.2 EU/dl (0.2); White Blood Count 6.7 K/mm3 (4.8-10.8)
[2024-07-20 08:45] LABS: Bacteria,Urine Trace /lpf
[2024-07-20 09:12] LABS: Alanine Aminotransferase 18 U/L (12-78); Albumin/Globulin Ratio 1.8 (1.1-1.8); Alkaline Phosphatase 65 U/L (38-126); Anion Gap 8.6 mEq/L (5-15); Aspartate Amino Transferase 21 U/L (14-36); Bilirubin,Total 0.6 mg/dl (0.2-1.3); Blood Urea Nitrogen 17 mg/dl (7-17); Calcium 9.2 mg/dl (8.4-10.2); Carbon Dioxide 28 mmol/L (22.0-30.0); Chloride 105 mmol/L (98-107); Estimated Glomerular Filt Rate 58 ml/min (>60); GFR (African American) 70 ML/MIN (>60); Globulin 2.2 g/dL (1.3-3.2); Glucose 86 mg/dl (74-100); Potassium 4.6 mmoL/L (3.5-5.1); Sodium 137 mmol/L (136-145); Total Protein,Serum 6.2 g/dl (6.3-8.2)
[2024-07-20 09:17] LABS: C-Reactive Protein 2.9 mg/L (0-4)
== END 2024-07-20 23:59 | disposition home or self-care (01) ==
LOC: LAB 07:15
PROVIDERS: PCP Physician Assistant; Visit Provider Internal Medicine Rheumatology
DX: M32.8 Other forms of systemic lupus erythematosus (principal)
CPT/HCPCS: 36415; 80053; 81001; 85025; 86140; 87086

== ENCOUNTER 2024-08-31 10:19 | Outpatient (CLI) | payer BC, SELFPAY ==
[2024-08-31 11:05] LABS: Prothrombin Time 73.4 seconds (10.1-12.5)
== END 2024-08-31 23:59 | disposition home or self-care (01) ==
LOC: LAB 10:19
PROVIDERS: PCP Physician Assistant; Visit Provider Physician Assistant
DX: R79.1 Abnormal coagulation profile (principal)
CPT/HCPCS: 36415; 85610

== ENCOUNTER 2024-10-19 11:50 | Outpatient (CLI) | payer BC, SELFPAY ==
[2024-10-19 12:29] LABS: INR 1.99 (0.9-1.1); Prothrombin Time 20.5 seconds (9.2-12.1)
== END 2024-10-19 23:59 | disposition home or self-care (01) ==
LOC: LAB 11:52
PROVIDERS: PCP Physician Assistant; Visit Provider Physician Assistant
DX: Z79.01 Long term (current) use of anticoagulants (principal)
CPT/HCPCS: 36415; 85610

== ENCOUNTER 2024-11-17 09:01 | Emergency (ER) | payer OTHER, BC, SELFPAY ==
[2024-11-17 09:11] VITALS: BP 175/93; PULSE 89; RESP 16; TEMP 36.5; O2SAT 100; BMI 29.2
--- NOTE | 2024-11-17 09:18 | XR_ITS ---
FINAL REPORT CLINICAL HISTORY: fall, injury COMPARISON: None FINDINGS: LEFT HIP: Two views of the left hip with an AP view of the pelvis demonstrate no acute fracture or dislocation. The joint spaces appear normal. The visualized bony structures are well aligned. No soft tissue abnormality is seen. IMPRESSION: No acute bony abnormality. Reviewed, Interpreted and Dictated by Flory Rosado MD Transcribed by Fabiana Grossman Authenticated and [facility]
--- NOTE | 2024-11-17 09:19 | HMH.EDGENADL ---
Discharge Plan Disposition Patient Disposition: Home, Self-Care Prescriptions Prescriptions: New cyclobenzaprine 10 mg tablet 10 mg PO TID PRN (Reason: muscle spasm) 5 Days Qty: 15 0RF lidocaine 4 % adhesive patch,medicated 1 patch topical DAILY Qty: 5 0RF Rx Instructions: may leave on for up to 12 hrs No Action mycophenolate mofetil 500 mg tablet 500 mg PO BID ezetimibe 10 mg tablet 10 mg PO DAILY estradiol 0.01 % (0.1 mg/gram) cream 1 appful vaginal DAILY 30 Days Qty: 42.5 4RF Rx Instructions: Please dispose of the applicator and apply a blueberry size amount every night for 2 weeks and then twice weekly for maintenance warfarin 4 mg tablet 4 mg PO DAILY 90 Days Qty: 90 Patient Comments: omeprazole 20 mg capsule,delayed release(DR/EC) 20 mg PO DAILY 90 Days Qty: 90 Patient Comments: calcium carbonate [Calcium 600] 600 mg calcium (1,500 mg) tablet 600 mg PO BID montelukast 10 MG tablet 10 mg PO PM prednisone 10 mg tablet 5 mg PO DAILY amlodipine 5 mg tablet 5 mg PO DAILY rosuvastatin 20 mg tablet 20 mg PO HS fluticasone propionate [fluticasone propionate] 50 mcg/actuation spray,suspension 1 spray intranasal DAILY Qty: 9.9 0RF Referrals Follow up/Referrals: Joleen Ragsdale PA [Primary Care Provider] - See instructions Activity Restrictions/Add. Instructions Additional Instructions/Restrictions: Your symptoms are consistent with an acute lumbosacral strain secondary to your fall. As discussed please return with any concerns for bleeding as we currently held off on any CT imaging to rule out significant intra-abdominal pathology as a consequence of your anticoagulation, Coumadin use. It is very unlikely given your symptoms that you had any significant injuries that would present today bleeding but remains possible please return with any significant worsening of your symptoms and take your symptomatic medications as discussed. You may apply ice in addition to the muscle relaxer and lidocaine that you have been prescribed. Clinical Impressions Clinical Impression: Acute myofascial strain of lumbosacral region Print Language Print Language: Martiniquais Discharge ED Provider: Nohelia Meza General Adult HPI General Chief complaint: Fall Stated complaint: [id number]- pain in back L hip Time Seen by Provider: 11/17/24 09:11 Mode of Arrival: Ambulatory Source of Information: Patient Description of Symptoms (Recalled from ER Triage Doc. by RN): pt reports slipping and falling on her way into work this AM around 0720. Pt reports landing on her back. no LOC. pt takes warfarin. pt c/o lower back pain that is worse on the L side. pt states her pain is constant, sharp and 5/10. She reports taking tylenol at 0745 History of Present Illness HPI narrative: Patient is a 54-year-old who is chronically anticoagulated on Coumadin for factor V Leiden and DVT presents today with an injury to her left hip/lumbosacral region after a fall. She was trying to open a door and fell directly onto her bottom onto a concrete floor. She denies any injuries elsewhere denies any head neck chest abdomen or pelvis injuries. Denies any difficulty with ambulation or paralysis or sensation loss. Related Data Home Medications ?Medication ?Instructions ?Recorded ?Confirmed calcium carbonate (Calcium 600) 600 mg PO BID Supplement 03/10/18 03/23/24 mycophenolate mofetil 500 mg tablet 500 mg PO BID LUPUS 10/29/18 03/23/24 omeprazole 20 mg capsule,delayed 20 mg PO DAILY GERD 90 days #90 10/29/18 03/23/24 release caps warfarin 4 mg tablet 4 mg PO DAILY FACTOR V, DVT/PE 90 10/29/18 03/23/24 days #90 tabs montelukast 10 mg tablet 10 mg PO PM Allergy symptoms 10/13/19 03/23/24 amlodipine 5 mg tablet 5 mg PO DAILY 10/17/23 10/17/23 prednisone 10 mg tablet 5 mg PO DAILY 10/17/23 03/23/24 rosuvastatin 20 mg tablet 20 mg PO HS 10/17/23 03/23/24 ezetimibe 10 mg tablet 10 mg PO DAILY 03/23/24 03/23/24 Previous Rx's ?Medication ?Instructions ?Recorded fluticasone propionate 50 1 spray intranasal DAILY #9.9 mL 10/17/23 mcg/actuation nasal spray,suspension estradiol 0.01% (0.1 mg/gram) 1 appful vaginal DAILY 30 days 03/23/24 vaginal cream #42.5 grams cyclobenzaprine 10 mg tablet 10 mg PO TID PRN muscle spasm 5 11/17/24 days #15 tabs lidocaine 4 % topical patch 1 patch topical DAILY #5 ea 11/17/24 Allergies Allergy/AdvReac Type Severity Reaction Status Date / Time hydroxychloroquine Allergy Verified 03/23/24 09:14 moxifloxacin (From Avelox) Allergy Verified 03/23/24 09:14 sulindac Allergy Verified 03/23/24 09:14 [facility] Disclaimer: The information contained in this section may have been updated after the patient was seen, as this information can be updated by other users. Medical History (Updated 11/17/24 @ 09:54 by Nohelia Meza MD) GERD (gastroesophageal reflux disease) Other abnormality of red blood cells Factor V Leiden Hyperlipidemia Rotator cuff tear, left Vitamin B deficiency Folic acid deficiency anemia Surgical History (Updated 03/23/24 @ 09:19 by JAIMEE Lau) H/O sinus surgery History of lung surgery Family History Other No significant family history Social History Smoking Status: Never smoker alcohol intake: never substance use type: denies use current occupational status: other Travel in the last 8 weeks: None household members: spouse housing: house Have you lived/traveled outside [place] in past 30 days?: No Contact w/someone who lives/traveled outside US past 30 days?: No Exposure to someone with infectious disease in past 14 days?: No Do you have a fever (greater than 100.4 F or 38 C)?: No Have you tested positive for COVID-19: No Exposed to someone with COVID-19 in past 14 days?: No Do you have a sore throat?: No Do you have a cough?: No Do you have any weakness?: No Do you have any diarrhea?: No Are you experiencing any unusual bleeding?: No Do you have any muscle aches/pain?: Yes Do you have any abdominal pain?: No Are you experiencing loss of taste or smell?: No Other Medical History Have you received the Flu Vaccine for this season: Yes Have you received the Pneumonia Vaccine: Yes ROS Obtained: Yes All systems reviewed & no additional complaints except as documented Physical Exam General General appearance: alert and in no apparent distress Respiratory Respiratory exam: Present normal lung sounds bilaterally Cardiovascular Cardiovascular exam: Present regular rate and normal rhythm Back Exam Back exam: Absent tenderness (No midline tenderness) Back 1 view image: 1. Left para spinal lumbar sacral tenderness neurovascular intact distally no saddle anesthesia no lower extremity weakness normal sensation good pulses Neurological Exam Neurological exam: Present alert and oriented X3 Medical Decision Making Medical Records Screening: Per USPSTF and CDC recommendations, given the prevalence of disease in our region, it is our hospital?s policy to screen for HIV and viral Hepatitis for all patients aged 18 and over and those with ongoing risk factors. Cristian Inquiry Pt receiving controlled substance: No Vital Signs: 11/17/24 09:11 Temperature 97.7 F Temperature Source Oral Pulse Rate [Left] 89 Respiratory Rate 16 Blood Pressure [Right Arm] 175/93 H Blood Pressure Mean [Right Arm] 120 Blood Pressure Source [Right Arm] Automatic Cuff Blood Pressure Position [Right Arm] Sitting 02 Sat by Pulse Oximetry 100 Oxygen Delivery Method Room Air Orders (Tests/Meds): ORDERS Category Date Time Status Hip XR left minimum 2 views [XR hip LT 2-3V w/pelvis] Exams 11/17/24 09:18 Taken Stat HIV Combo Stat Lab 11/17/24 09:16 Ordered Hepatitis C Ab Qual. W/ RFX Stat Lab 11/17/24 09:16 Ordered Medical Decision Narrative: 54-year-old with injury to the left lumbosacral region no concern for midline spinal injury she does have some pain in the superior aspect of her iliac crest also with some internal/external rotation of the left hip will get a plain film of left hip and pelvis which are unlikely to be abnormal. Patient has no red flags to warrant any CT imaging or imaging of the spine. Additionally patient has no head neck chest abdomen pelvis injuries I do not suspect she needs further workup but she has been told to observe herself given the fact that she is on Coumadin with any worsening symptoms and she is aware of this. She cannot take NSAIDs given the fact that she is anticoagulated on Coumadin. Will prescribe muscle relaxer and lidocaine patches for the patient she does not want a medication while in the ED. Reassessment 954 patient resting comfortably in bed reading a book. X-ray was performed which I personally interpreted there is a calcification just lateral to her femur but no evidence of any obvious fracture or dislocation. Patient able to ambulate. Supportive care discussed symptomatic medications were prescribed specifically patient was advised to return with any evidence of bleeding or other concerns or other symptoms. Patient was discharged in stable condition. Critical Care Critical Care Time Critical Care Time: No
[2024-11-17 09:30] VITALS: BP 175/94; PULSE 84; RESP 21; O2SAT 97
[2024-11-17 10:03] VITALS: BP 176/105; PULSE 80; RESP 20; TEMP 36.7; O2SAT 99
== END 2024-11-17 10:05 | disposition home or self-care (01) ==
PROVIDERS: Emergency Provider Student in an Organized Health Care Education/Training Program; PCP Physician Assistant
DX: S39.012A Strain of muscle, fascia and tendon of lower back, initial encounter (principal); W19.XXXA Unspecified fall, initial encounter
CPT/HCPCS: 73502; 99283

== ENCOUNTER 2024-12-23 11:22 | Outpatient (CLI) | payer BC, SELFPAY ==
[2024-12-23 11:32] LABS: Microscopic, Urine URINE MICROSCOPIC (MICROSCOPIC)
[2024-12-23 12:00] LABS: Basophils % 0.5 % (0.1-2.0); Eosinophils # 0.1 K/mm3 (0.0-0.4); Eosinophils % 1.7 % (0.1-12.0); Hematocrit 39.5 % (37.0-47.0); Hemoglobin 12.6 g/dL (12.2-16.2); Lymphocytes # 1.6 K/mm3 (0.7-4.5); Lymphocytes % 27.6 % (10-50); Mean Corpuscular HGB Conc 31.9 g/dL (31.8-35.4); Mean Corpuscular Hemoglobin 26.6 pg (27.0-31.2); Mean Corpuscular Volume 83.5 fl (81-99); Mean Platelet Volume 9.2 fl (7.4-10.4); Monocytes # 0.6 K/mm3 (0.1-1.0); Monocytes % 10.6 % (1.7-9.3); Neutrophils # 3.5 K/mm3 (1.8-7.8); Neutrophils % 59.3 % (37.0-80.0); Nucleated Red Blood Cells # 0 10^3/uL; Nucleated Red Blood Cells % 0 %; Platelet Count 244 K/mm3 (142-424); Red Blood Count 4.73 M/mm3 (4.20-5.40); Red Cell Distribution Width-SD 45.3 fL; White Blood Count 5.8 K/mm3 (4.8-10.8)
[2024-12-23 12:06] LABS: INR 1.78 (0.9-1.1); Prothrombin Time 18.8 seconds (10.1-12.5)
[2024-12-23 12:17] LABS: Albumin Level 4.1 g/dl (3.5-5.0); Chloride 103 mmol/L (98-107); Potassium 3.8 mmoL/L (3.5-5.1); Sodium 137 mmol/L (136-145)
[2024-12-23 12:19] LABS: Blood Urea Nitrogen 13 mg/dl (7-17); Estimated Glomerular Filt Rate 75 ml/min (>60); GFR (African American) 91 ML/MIN (>60)
[2024-12-23 12:20] LABS: Alanine Aminotransferase 22 U/L (12-78); Albumin/Globulin Ratio 1.5 (1.1-1.8); Alkaline Phosphatase 81 U/L (38-126); Anion Gap 10.8 mEq/L (5-15); Aspartate Amino Transferase 23 U/L (14-36); Bilirubin,Total 0.6 mg/dl (0.2-1.3); Calcium 9.2 mg/dl (8.4-10.2); Carbon Dioxide 27 mmol/L (22.0-30.0); Cholesterol 196 mg/dl (140-200); Globulin 2.8 g/dL (1.3-3.2); Glucose 88 mg/dl (74-100); Total Protein,Serum 6.9 g/dl (6.3-8.2); Triglycerides 177 mg/dl (30-150); VLDL Cholesterol 35 mg/dL (0-40)
[2024-12-23 12:21] LABS: Chol/HDL Ratio 3.1 (1-3.5); HDL Cholesterol 64 mg/dl (40-60)
[2024-12-23 12:24] LABS: C-Reactive Protein 3.5 mg/L (0-4)
[2024-12-23 12:31] LABS: Direct LDL Cholesterol 99.73 mg/dL (100-129)
[2024-12-23 12:32] LABS: Erythrocyte Sedimentation Rate 15 mm/hr (0-30)
[2024-12-23 12:39] LABS: Appearance,Urine CLEAR (Clear); Bilirubin,Urine Negative (Negative); Blood, Urine 2+ (Negative); Color,Urine YELLOW (Yellow); Glucose,Urine (UA) Negative (Negative); Ketones,Urine Negative (Negative); Leukocyte Esterase,Urine Negative (Negative); Nitrate,Urine Negative (Negative); Protein,Urine Negative (Negative); Urobilinogen,Urine 0.2 EU/dl (0.2)
[2024-12-23 15:01] LABS: Vitamin B12 494 pg/mL (239-931)
== END 2024-12-23 23:59 | disposition home or self-care (01) ==
PROVIDERS: Internal Medicine Rheumatology; PCP Physician Assistant; Visit Provider Physician Assistant
DX: D64.9 Anemia, unspecified (principal); I10 Essential (primary) hypertension; E78.2 Mixed hyperlipidemia; E53.8 Deficiency of other specified B group vitamins
CPT/HCPCS: 36415; 80053; 80061; 81001; 82607; 84443; 85025; 85610; 85651; 86140

== ENCOUNTER 2025-06-20 07:35 | Emergency (ER) | payer BC, SELFPAY ==
--- OUTSIDE RECORDS SUMMARY | 2024-10-06 05:30 | XMS_ITS ---
Author Organization [facility] Address [address] [place] [id number] Care Team Providers Care Relish Maker Name Role Phone Nohelia Lora Primary Care Provider [phone] Joleen Ragsdale [phone] REASON FOR VISIT 2 weeks Encounters Encounter Location Date Provider Diagnosis [facility] [address] [place] [id number] 10/06/2024 Joleen Ragsdale Plan Of Treatment No Information Progress Notes * EDY RUTHERFORDDOB:1969 (55 yo F)Acc No.[id number]:10/06/2024 Patient: EDY GARZA Provider: PATRICIA Musa :1970 A ge:54 Y S ex:Female Date:10/06/2024 Address:[address] [place], [place] [address], [id number] Pcp:Nohelia Lora Subjective: * Chief Complaints: * 1 . 2 weeks. * Medical History: Objective: * Vitals: Assessment: Plan: * Treatment: * Images: Billing Information: * Visit Code: * Procedure Codes: * Electronic signature of PATRICIA Solitario on 06/20/2025 at 07:44 AM EDT Sign off status: Pending * Provider: PATRICIA Musa Date: 0 10/06/2024 Generated for Leightoni ng/Fajuarezg/eTransmitting on: 07:44 AM EDT
--- OUTSIDE RECORDS SUMMARY | 2024-12-21 11:45 | XMS_ITS ---
Author Organization [facility] Address [address] [place] [id number] Care Team Providers Care Service Observer Chief Name Role Phone Nohelia Lora Primary Care Provider Joleen Ragsdale Unavailable [phone] Allergies Allergen (clinical drug ingredient) Drug/Non Drug Allergy documented on EMR Reaction Allergy Type Onset Date Status hydroxychloroquine Plaquenil Unknown Drug Allergy Active sulindac Sulindac Unknown Drug Allergy Active Medicinal quinolone and acting as antibacterial agent (FN) Quinolones interaction with warfarin Drug Allergy Active Results Component Value Reference Range Notes H-TSH Reviewed date:12/23/2024 04:34:51 PM Interpretation:Normal Performing Lab: Notes/Report: SHARE RESULTS OF CMP WITH CRISTOPHER العلي MD [id number] TSH 1.30 0.465-4.68 uIU/mL H-CBC Reviewed date:12/23/2024 02:32:36 PM Interpretation:mch 26.6, mo% 10.6 Performing Lab: Notes/Report: SHARE RESULTS WITH CRISTOPHER العلي MD [id number] WBC 5.8 4.8-10.8 K/mm3 RBC 4.73 4.20-5.40 M/mm3 HGB 12.6 12.2-16.2 g/dL HCT 39.5 37.0-47.0 % MCV 83.5 81-99 fl MCH 26.6 27.0-31.2 pg MCHC 31.9 31.8-35.4 g/dL RDW-SD 45.3 RDW 15.0 11.5-17.5 % PLT 244 142-424 K/mm3 MPV 9.2 7.4-10.4 fl NE% 59.3 37.0-80.0 % LY% 27.6 10-50 % MO% 10.6 1.7-9.3 % EO% 1.7 0.1-12.0 % BA% 0.5 0.1-2.0 % NRBC% 0 NE# 3.5 1.8-7.8 K/mm3 LY# 1.6 0.7-4.5 K/mm3 MO# 0.6 0.1-1.0 K/mm3 EO# 0.1 0.0-0.4 K/mm3 BA# 0.0 0-0.2 K/mm3 NRBC# 0 H-Lipid Panel Reviewed date:12/23/2024 04:34:51 PM Interpretation:trig 177, dldl 99.73, hdl 64 Performing Lab: Notes/Report: SHARE RESULTS OF CMP WITH CRISTOPHER العلي MD [id number] Patient Fasting? Y TRIG 177 30-150 mg/dl CHOL 196 140-200 mg/dl DLDL 99.73 100-129 mg/dL VLDL 35 0-40 mg/dL HDL 64 40-60 mg/dl CHLHDL 3.1 1-3.5 H-CMP Reviewed date:12/23/2024 04:34:51 PM Interpretation:Normal Performing Lab: Notes/Report: SHARE RESULTS OF CMP WITH CRISTOPHER العلي MD [id number] NA 137 136-145 mmol/L K 3.8 3.5-5.1 mmoL/L CL 103 98-107 mmol/L CO2 27 22.0-30.0 mmol/L GAP 10.8 5-15 mEq/L BUN 13 7-17 mg/dl CREATT 0.80 0.52-1.04 mg/dl GFRAA 91 >60 ML/MIN EGFR 75 >60 ml/min GLU 88 74-100 mg/dl CA 9.2 8.4-10.2 mg/dl BILIT 0.6 0.2-1.3 mg/dl AST 23 14-36 U/L ALT 22 12-78 U/L TP 6.9 6.3-8.2 g/dl ALB 4.1 3.5-5.0 g/dl GLOB 2.8 1.3-3.2 g/dL AGRATIO 1.5 1.1-1.8 ALP 81 38-126 U/L H-VITAMIN B12 Reviewed date:12/23/2024 04:34:51 PM Interpretation: Performing Lab: Notes/Report: SHARE RESULTS OF CMP WITH CRISTOPHER العلي MD [id number] VITB12 494 239-931 pg/mL REASON FOR VISIT bites on back of left leg Medications Medication SIG (Take, Route, Frequency, Duration) Notes Start Date End Date Status CellCept 500 MG 2 tab(s) orally 2 ti mes a day; Duration: 30 day(s) Active Rosuvastatin Calcium 20 MG 1 tab(s) oral ly once a day; Duration: 90 Active Cephalexin 500 MG 1 tablet Orally Two times a day; Duration: 7 days 12/21/2024 Active predniSONE 5 MG 1 tablet Orally Once a day; Duration: 30 day(s) Active Calcium + Vitamin D3 600-5 MG-MCG 1 tab(s) orally twice a day; Duration: 30 day(s) Active Omeprazole 40 MG 1 cap(s) orally once a day; Duration: 90 days Active Zetia 10 MG 1 tab(s) orally once a day; Duration: 90 days Active Warfarin Sodium 4 MG 1 tab(s) orally onc e a day; Duration: 90 days Active amLODIPine Besylate 5 MG 1 tab(s) orally once a day; Duration: 90 days Active Singulair 10 MG 1 tab(s) orally once a day; Duration: 90 days Active Problems Problem Type SNOMED Code ICD Code Onset Dates Problem Status W/U Status Risk Notes Problem Anemia (489940021) Anemia, unspecified type (D64.9) Active confirmed Vital Signs Blood pressure systolic 120 mm Hg 12/22/19 25 Blood pressure diastolic 84 mm Hg 025 Heart Rate 95 /min 12/21/2024 Height 62.50 in 12/21/2024 Weight 166.2 lbs 12/21/2024 BMI 29.91 kg/m2 12/21/2024 Encounters Encounter Location Date Provider Diagnosis [facility] [address] [place] [id number] 12/21/2024 Joleen Kumardy Spider bite wound, accidental or unintentional, initial encounter T63.301A ; Cellulitis of left lower extremity L03.116 ; Essential hypertension I10 ; Mixed hyperlipidemia E78.2 ; Anemia, unspecified type D64.9 ; B12 deficiency E53.8 and BMI 29.0-29.9,adult Z68.29 Assessments Encounter Date Diagnosis (ICD Code) Assessment Notes Treatment Notes Treatment Clinical Notes Section Notes 12/21/2024 Spider bite wound, accidental or unintentional, initial encounter (ICD-10 - T63.301A) 12/21/2024 Cellulitis of left lower extremity (ICD-10 - L03.116) 12/21/2024 Essential hypertension (ICD-10 - I10) 12/21/2024 Mixed hyperlipidemia (ICD-10 - E78.2) 12/21/2024 Anemia, unspecified type (ICD-10 - D64.9) 12/21/2024 B12 deficiency (ICD-10 - E53.8) 12/21/2024 BMI 29.0-29.9,adult (ICD-10 - Z68.29) Plan Of Treatment Medication Medication Name Sig Start Date Stop Date Notes Cephalexin 500 MG 1 tablet Orally Two times a day; Duration: 7 days 12/21/2024 Next Appt Details Follow Up: via phone to repo rt test results, Reason: Progress Notes * EDY RUTHERFORDDOB:1969 (55 yo F)Acc No.[id number]:12/21/2024 Progress Notes Patient: EDY GARZA Provider: PATRICIA Musa :1970 A ge:54 Y S ex:Female Date:12/21/2024 Address:[address] [place] [address], [place], [id number] Pcp:Nohelia Lora Subjective: * Chief Complaints: * 1 . Bites on back of left leg. * HPI: D ermatology: The pt is here today with c/o insect bites on the left calf. Pt states she found these on Thursday and is un aware of when they occured. Pt states the site is black in the center and redness around the site. 54 year old female presents with c/o bug bites . * ROS: C ARDIOLOGY: no C hest pain. n o S hortness of breath. ? G ASTROENTEROLOGY: no N ausea. n o V omiting. n o D iarrhea.? U ROLOGY: no D ifficulty urinating. n o B lood in urine. * Medical History: L eiden factor V, Rheumatoid Arthritis, + RA factor, BOOP, DVT, Pulmonary Embolism, Kidney Stones, Rib fractures, Pneumothorax, Pneumomediastinum, 06/11/2014, Lt Elbow Contusion, 06/11/2014, Asthma. * Surgical History: L coral Biopsy 2001, Sinus 01/2010, Kidney Stone Removal 05/2007, Sinus surgery 10/12/2008. * Hospitalization/Major Diagno stic Procedure: D rug Reaction , Kidney Stones 05/2007, Fell Off Horse- [facility] [place] 06/11/2014, Twisted Lt Ankle- [facility] 07/2014, Bronchitis- [facility] 11/2015. * Family History: F ather: alive. M other: alive. C [place]: son with focal segmental glomerulosclerosis renal disease. 1 sister(s) - healthy. 2 son(s) , 2 daughter(s) . . * Social History: C URRENT TOBACCO USE S moking Status: Patient does NOT smoke. C affeine: yes, frequency:. Marital Status: . Past smoking status: no, Smoking status: Does not smoke. Alcohol: no. * Medications: T aking predniSONE 5 MG Tablet 1 tablet Orally Once a day , Taking Calcium + Vitamin D3 600-5 MG-MCG Tablet 1 tab(s) orally twice a day , Taking CellCept 500 MG Tablet 2 tab(s) orally 2 times a day , Taking Rosuvastatin Calcium 20 MG Tablet 1 tab(s) orally once a day , Taking Omeprazole 40 MG Capsule Delayed Release 1 cap(s) orally once a day , Taking Zetia 10 MG Tablet 1 tab(s) orally once a day , Taking Warfarin Sodium 4 MG Tablet 1 tab(s) orally once a day , Taking amLODIPine Besylate 5 MG Tablet 1 tab(s) orally once a day , Taking Singulair 10 MG Tablet 1 tab(s) orally once a day , Medication List reviewed and reconciled with the patient * Allergies: P laquenil, Sulindac, Quinolones: interaction with warfarin. Objective: * Vitals: W t:166.2, Temp:98.2, BP:120/84, HR:95, Nurse:AMBER, Ht: 62.50, BMI:29.91. * Examination: G eneral Examination: General Appearance: N AD. H EENT: u nremarkable.?Oral cavity: n o lesions, mucosa moist and WNL, no erythema. N yue: s upple, no lymphadenopathy. C hest: n ormal shape and expansion. H eart: R SR. L ungs: c lear to auscultation. A bdomen: bowel sounds present, soft and nontender. N eurologic Exam: I ntact, gait normal. S kin: n ormal, no rash, 2 spider bites on the back of the left thigh with surrounding erythema. P eripheral pulses: n ormal (2+) bilaterally. E xtremities: n o leg edema. Assessment: * Assessment: 1. C ellulitis of left lower extremity - L03.116 (Primary) 2 . S pider bite wound, accidental or unintentional, initial encounter - T63.301A 3 . E ssential hypertension - I10 4 . M ixed hyperlipidemia - E78.2 5 . A nemia, unspecified type - D64.9 6 . B 12 deficiency - E53.8 7 .?BMI 29.0-29.9,adult - Z68.29 Plan: * Treatment: 2. E ssential hypertension L AB: H-TSH (Collection Date & Time - 12/23/2024 11:31 AM) N ormal Value Reference Range T SH 1.30 0.465-4.68 - uIU/mL * Kaci Knapp 12/23/2024 02: 32:29 PM > see phone encounter Joleen Ragsdale 12/23/2024 4:34:42 PM > see TE ?LAB: H-CMP (Collection Date & Time - 12/23/2024 11:31 AM)?Normal* Value Reference Range N A 137 136-145 - mmol/L * K 3.8 3.5-5.1 - mmoL/L * C L 103 98-107 - mmol/L * C O2 27 22.0-30.0 - mmol/L * G AP 10.8 5-15 - mEq/L * B UN 13 7-17 - mg/dl * C REATT 0.80 0.52-1.04 - mg/dl * G FRAA 91 >60 - ML/MIN * E GFR 75 >60 - ml/min * G DEXTER 88 74-100 - mg/dl * C A 9.2 8.4-10.2 - mg/dl * B ILIT 0.6 0.2-1.3 - mg/dl * A ST 23 14-36 - U/L * A LT 22 12-78 - U/L * T P 6.9 6.3-8.2 - g/dl * A LB 4.1 3.5-5.0 - g/dl * G LOB 2.8 1.3-3.2 - g/dL * A GRATIO 1.5 1.1-1.8 - * A LP 81 38-126 - U/L * Kaci Knapp 12/23/2024 02: 32:29 PM > see phone encounter Joleen Ragsdale 12/23/2024 4:34:42 PM > see TE 3.?Mixed hyperlipidemia?LAB: H-Lipid Panel (Collection Date & Time - 12/23/2024 11:31 AM)?trig 177, dldl 99.73, hdl 64* Value Reference Range T RIG 177 H 30-150 - mg/dl * C HOL 196 140-200 - mg/dl * D LDL 99.73 L 100-129 - mg/dL * V LDL 35 0-40 - mg/dL * H DL 64 H 40-60 - mg/dl * C HLHDL 3.1 1-3.5 - * Kaci Knapp 12/23/2024 02: 32:29 PM > see phone encounter Joleen Ragsdale 12/23/2024 4:34:42 PM > see TE 4.?Anemia, unspecified type?LAB: H-CBC (Collection Date & Time - 12/23/2024 11:31 AM)?mch 26.6, mo% 10.6* Value Reference Range W BC 5.8 4.8-10.8 - K/mm3 * R BC 4.73 4.20-5.40 - M/mm3 * H GB 12.6 12.2-16.2 - g/dL * H CT 39.5 37.0-47.0 - % * M CV 83.5 81-99 - fl * M CH 26.6 L 27.0-31.2 - pg * M CHC 31.9 31.8-35.4 - g/dL * R DW 15.0 11.5-17.5 - % * P LT 244 142-424 - K/mm3 * M PV 9.2 7.4-10.4 - fl * N E% 59.3 37.0-80.0 - % * L Y% 27.6 10-50 - % * M O% 10.6 H 1.7-9.3 - % * E O% 1.7 0.1-12.0 - % * B A% 0.5 0.1-2.0 - % * N E# 3.5 1.8-7.8 - K/mm3 * L Y# 1.6 0.7-4.5 - K/mm3 * M O# 0.6 0.1-1.0 - K/mm3 * E O# 0.1 0.0-0.4 - K/mm3 * B A# 0.0 0-0.2 - K/mm3 * R DW-SD 45.3 - fL * N RBC% 0 - % * N RBC# 0 - 10 3/uL * Kaci Knapp 12/23/2024 02: 32:29 PM > see phone encounter 5.?B12 deficiency?LAB: H-VITAMIN B12 (Collection Date & Time - 12/23/2024 11:31 AM)* Value Reference Range V ITB12 494 239-931 - pg/mL * Joleen Ragsdale 12/23/2024 4: 34:42 PM > see TE * Procedure Codes: 3 074F SYST BP LT 130 MM HG, 3079F DIAST BP 80-89 MM HG * Follow Up: v ia phone to report test results * Images: Billing Information: * Visit Code: 17374 Office Visit, Est Pt., Level 4. * Procedure Codes: 3074F SYST BP LT 130 MM HG. 3079F DIAST BP 80-89 MM HG. * Electronic signature of PATRICIA Solitario on 06/20/2025 at 07:44 AM EDT Sign off status: Pending * Provider: PATRICIA Musa Date: 0 12/21/2024 Generated for Printi ng/Faxing/eTransmitting on: 1 07:44 AM EDT History and Physical Notes * HPI (History of Present Illness) Category Sub-Category Detail Notes Category Not es Dermatology bug bites Examination Category Sub-Category Detail Notes Category Not es General Examination HEENT: unremarkable Heart: RSR Lungs: clear to auscultatio n Abdomen: bowel sounds present , soft and nontender Extremities: no leg edema General Appearance: NAD Skin: normal, no rash, 2 s pider bites on the back of the left thigh with surrounding erythema Neurologic Exam: Intact, gait normal Neck: supple, no lymphaden opathy Oral cavity: no lesions, mucosa m oist and WNL, no erythema Peripheral pulses: normal (2+) bilatera lly Chest: normal shape and exp ansion
--- OUTSIDE RECORDS SUMMARY | 2024-12-28 06:00 | XMS_ITS ---
Author [facility] Address [address] [facility] [address] [place] [id number] Care Team Providers Care General I Farmworker Name Role Phone Nohelia Lora Primary Care Provider Joleen Ragsdale Unavailable [phone] Allergies Allergen (clinical drug ingredient) Drug/Non Drug Allergy documented on EMR Reaction Allergy Type Onset Date Status hydroxychloroquine Plaquenil Unknown Drug Allergy Active sulindac Sulindac Unknown Drug Allergy Active Medicinal quinolone and acting as antibacterial agent (FN) Quinolones interaction with warfarin Drug Allergy Active REASON FOR VISIT physical, Needs shingles vaccine Medications Medication SIG (Take, Route, Frequency, Duration) Notes Start Date End Date Status Singulair 10 MG 1 tab(s) orally once a day; Duration: 90 days Active Cephalexin 500 MG 1 tablet Orally Two times a day; Duration: 7 days 12/21/2024 Active Zetia 10 MG 1 tab(s) orally once a day; Duration: 90 days Active Warfarin Sodium 4 MG 1 tab(s) orally onc e a day; Duration: 90 days Active amLODIPine Besylate 5 MG 1 tab(s) orally once a day; Duration: 90 days Active predniSONE 5 MG 1 tablet Orally Once a day; Duration: 30 day(s) Active Calcium + Vitamin D3 600-5 MG-MCG 1 tab(s) orally twice a day; Duration: 30 day(s) Active CellCept 500 MG 2 tab(s) orally 2 ti mes a day; Duration: 30 day(s) Active Rosuvastatin Calcium 20 MG 1 tab(s) oral ly once a day; Duration: 90 Active Omeprazole 40 MG 1 cap(s) orally once a day; Duration: 90 days Active Mupirocin 2 % 1 application Surgical Orderly ally Twice a day 12/28/2024 Active Problems Problem Type SNOMED Code ICD Code Onset Dates Problem Status W/U Status Risk Notes Problem Body mass index 30+ - obesity (065585141) BMI 30.0-30.9,a dult (Z68.30) Active confirmed Vital Signs Blood pressure systolic 130 mm Hg 12/29/19 25 Blood pressure diastolic 82 mm Hg 025 Heart Rate 83 /min 12/28/2024 Height 62.50 in 12/28/2024 Weight 168.2 lbs 12/28/2024 BMI 30.27 kg/m2 12/28/2024 Encounters Encounter Location Date Provider Diagnosis [facility] [address] [place], [place] [id number] 12/28/2024 Joleen Ragsdale Essential hypertensi on I10 ; Mixed hyperlipidemia E78.2 ; Spider bite wound, accidental or unintentional, initial encounter T63.301A ; Cellulitis of left lower extremity L03.116 ; Anemia, unspecified type D64.9 ; B12 deficiency E53.8 and BMI 30.0-30.9,adult Z68.30 Assessments Encounter Date Diagnosis (ICD Code) Assessment Notes Treatment Notes Treatment Clinical Notes Section Notes 12/28/2024 Essential hypertension (ICD-10 - I10) Discussed labs with patient. 12/28/2024 Mixed hyperlipidemia (ICD-10 - E78.2) 12/28/2024 Spider bite wound, accidental or unintentional, initial encounter (ICD-10 - T63.301A) 12/28/2024 Cellulitis of left lower extremity (ICD-10 - L03.116) 12/28/2024 Anemia, unspecified type (ICD-10 - D64.9) 12/28/2024 B12 deficiency (ICD-10 - E53.8) 12/28/2024 BMI 30.0-30.9,adult (ICD-10 - Z68.30) Plan Of Treatment Medication Medication Name Sig Start Date Stop Date Notes Mupirocin 2 % 1 application Externally Twice a day 025 Treatment Notes Assessment Notes Essential hypertension Discussed labs wi th patient. Next Appt Details Follow Up: 2 Weeks, Reason: Progress Notes * MARGO RUTHERFORD:1969 (55 yo F)Acc No.[id number]:12/28/2024 Physical Patient: EDY GARZA Provider: PATRICIA Musa :1970 A ge:54 Y S ex:Female Date:12/28/2024 Address:[address] [place], [id number] Pcp:Nohelia Lora Subjective: * Chief Complaints: * 1 . Physical. 2. Needs shingles vaccine. * HPI: H PI: Patient is here today for adia guamanlete physical. Pt states she is doing good and denies any new concerns. Pt states she had her fasting labs done last week. * ROS: D ERMATOLOGY: no R george. n o H javed. G ASTROENTEROLOGY: no N ausea. n o [...] , Kidney Stones 05/2007, Fell Off Horse- [facility], 06/11/2014, Twisted Lt Ankle- [facility] 07/2014, [facility] 11/2015. * Family History: F ather: alive. M other: alive. C hildren: son with focal segmental glomerulosclerosis renal disease. [...] tab(s) orally once a day , Taking Cephalexin 500 MG Tablet 1 tablet Orally Two times a day , Medication List reviewed and reconciled with the patient * Allergies: P laquenil, Sulindac, Quinolones: interaction with warfarin. Objective: * Vitals: W t: 168.2, Temp: 98.5, BP: 130/82, HR: 83, O2 Sat: J, Nurse: AMBER, Ht: 62.50, BMI:30.27. * Examination: G eneral Examination: General Appearance: N AD. H EENT: u nremarkable.?Oral cavity: n o lesions, mucosa moist and WNL, no erythema. N yue: s upple, no lymphadenopathy. C hest: n ormal shape and expansion. H eart: R SR. L ungs: c lear to auscultation. A bdomen: bowel sounds present, soft and nontender, no organomegaly or masses, no guarding or rigidity. N eurologic Exam: I ntact, gait normal. S kin: s pider bites on left leg have less erythema. P eripheral pulses: n ormal (2+) bilaterally.?Extremities: n o leg edema. Assessment: * Assessment: 1. E ssential hypertension - I10 (Primary) 2 . M ixed hyperlipidemia - E78.2 3 . S pider bite wound, accidental or unintentional, initial encounter - T63.301A 4 . C ellulitis of left lower extremity - L03.116 5 . A nemia, unspecified type - D64.9 6 . B 12 deficiency - E53.8 7 .?BMI 30.0-30.9,adult - Z68.30 Plan: * Treatment: 2. C ellulitis of left lower extremity Start Mupirocin Ointment, 2 %, 1 application, Externally, Twice a day, 1, Refills 0. * Procedure Codes: 3 075F SYST BP GE 130 - 139MM HG, 3079F DIAST BP 80-89 MM HG * Follow Up: 2 Weeks * Images: Billing Information: * Visit Code: 80596 Preventive Care Est Pt Age 40-64. * Procedure Codes: 3075F SYST BP GE 130 - 139MM HG. 3079F DIAST BP 80-89 MM HG. * Electronic signature of PATRICIA Solitario on 06/20/2025 at 07:45 AM EDT Sign off status: Pending * Provider: PATRICIA Musa Date: 0 12/28/2024 Generated for Leightoni ng/Fajuarezg/eTransmitting on: 1 07:45 AM EDT History and Physical Notes * HPI (History of Present Illness) Category Sub-Category Detail Notes Category Not es HPI Patient is here today for comple te physical. Pt states she is doing good and denies any new concerns. Pt states she had her fasting labs done last week Examination Category Sub-Category Detail Notes Category Not es General Examination HEENT: unremarkable Heart: RSR Lungs: clear to auscultatio n Abdomen: bowel sounds present , soft and nontender, no organomegaly or masses, no guarding or rigidity Extremities: no leg edema General Appearance: NAD Skin: spider bites on left leg have less erythema Neurologic Exam: Intact, gait normal Neck: supple, no lymphaden opathy Oral cavity: no lesions, mucosa m oist and WNL, no erythema Peripheral pulses: normal (2+) bilatera lly Chest: normal shape and exp ansion
[2025-06-20 07:43] VITALS: BP 195/114; PULSE 95; O2SAT 98
[2025-06-20 07:44] LABS: Microscopic, Urine URINE MICROSCOPIC (MICROSCOPIC)
[2025-06-20 07:45] VITALS: BP 195/115; PULSE 90; RESP 20; TEMP 36.9; O2SAT 99; BMI 30.2
--- NOTE | 2025-06-20 07:45 | CT_ITS ---
FINAL REPORT TECHNIQUE: Thin section axial images were obtained through the abdomen after intravenous contrast. Reconstruction images were obtained from the axial data. Exam was performed using dose reduction techniques. CLINICAL HISTORY: Right lower qaud pain, appy vs. stone FINDINGS: There are bilateral lower lung ground glass opacities, slightly asymmetric to the right concerning for pneumonia. Viral etiologies should be considered. There is a tiny hypodense lesion in the right lobe of the liver, likely hepatic cyst. The gallbladder is present. The spleen, adrenal glands, and pancreas are unremarkable. There is moderate right hydronephrosis and hydroureter to the level of an obstructing 6 mm right UVJ stone. No renal mass is identified. There is no evidence of small bowel obstruction. There is no abdominal lymphadenopathy or ascites. The appendix is normal. The uterus and ovaries are unremarkable. There is no pelvic lymphadenopathy or ascites. There is a very mild compression deformity involving the superior endplate of L3, favor chronic. IMPRESSION: Moderate right hydronephrosis and hydroureter secondary to an obstructing right UVJ stone. Normal appendix. Reviewed, Interpreted and Dictated by Masha King MD Transcribed by Darlene Matson Authenticated and [facility]
--- OUTSIDE RECORDS SUMMARY | 2025-06-20 07:45 | XMS_ITS | Clinical Summary ---
Author Organization [facility] Address [address] [id number] Care Team Providers [facility] Associate Name Role Phone Unavailable Primary Care Provider Unavailabl e Social History Tobacco Use Types Packs/Day Years Used Date Smoking Tobacco: Never Assessed Comments Unknown Sex and Gender Information Value Date Recorded Sex Assigned at Not on file Legal Sex Female 4:10 PM EST Gender Identity Not on file Sexual Orientation Not on file Plan of Treatment Health Maintenance Due Date Last Done Comments Breast Cancer Screening 1971 CT Colonography 1971 Colonoscopy 1971 Colorectal Cancer Screening 1970 FIT-DNA 1971 FIT 1971 FOBT 1970 Sigmoidoscopy 1971 Hepatitis B (HepB) Vaccine ( 1 of 3 - 19+ 3-dose series) 1990 Tdap/Td Vaccine >11 yo (1 - Tdap) 1990 Cervical Cancer Screening 1992 Pneumococcal Vaccines >50 yo (1 of 1 - PCV) 2021 Shingles (Shingrix) (1 of 2) 2021 Annual SDOH Screening 09/14/2024 Influenza Vaccine (#1) 2025 RSV 50+ and (1 - 1 -dose 75+ series) 2046 Haemophilus Influenzae Type B (Hib) Vaccine Aged Out No longer eligible b ased on patient's age to complete this topic Hepatitis A (HepA) Vaccine Aged Out N o longer eligible based on patient's age to complete this topic Meningococcal ACWY Aged Out No longer eligible based on patient's age to complete this topic Polio (IPV) Aged Out No longer eligi ble based on patient's age to complete this topic Rotavirus (RV) Vaccine Aged Out No lo nger eligible based on patient's age to complete this topic
--- OUTSIDE RECORDS SUMMARY | 2025-06-20 07:45 | XMS_ITS | Patient Health Record ---
Author Organization [facility] Address [address] [place] [address] Care Team Providers Care Edger Hand Name Role Phone Sadie Higgins Unavailable [phone] Allergies Allergen (clinical drug ingredient) Drug/Non Drug Allergy documented on EMR Reaction Allergy Type Onset Date Status CLINORIL (uncoded) Unspecified Allergy 06/24/2019 Active hydroxychloroquine PLAQUENIL (uncoded) Unspecified Allergy 06/24/2019 Active Reason For Referral No Information Social History Social History Additional Details Category Social Info Options Details Miscellaneous: Caffeine: CAFFEINE USE: 1-3 /day Problems Problem Type SNOMED Code ICD Code Onset Dates Problem Status W/U Status Risk Notes Problem Gynecological examination normal (895285988386165 ) Cervical smear, as part of routine gynecological examination (Z01.419) 06/24/20 19 Active confirmed Annual without abnormal findings Plan Of Treatment No Information Medical (General) History Medical History History ICD Code Acid Reflux Bleeding Disorder Clotting Disorder Deep Vein Thrombosis (DVT) Lupus Yeast Infections Fibrocystic Breasts MENSTR FLOW: Moderate ABORTIONS: 0 EZETIMIBE TABLET PREDNISONE TABLET amlodipine montelukast CELLCEPT TABLET omeprazole WARFARIN SODIUM TABLET PRAVASTATIN SODIUM TABLET Surgical History Surgery Date(Month/Year) sinus surgery lung biopsy
--- OUTSIDE RECORDS SUMMARY | 2025-06-20 07:46 | XMS_ITS | Patient Health Record ---
[facility] Organization [facility] Address [address] [facility] [address] [place] [id number] Care Team Providers Care Medical Records Library Professor Name Role Phone Nohelia Lora Primary Care Provider [phone] Sherwin Mack Unavailable [phone] Lisy Johnson Unavailable [phone] Joleen Ragsdale Unavailable [phone] Allergies Allergen (clinical drug ingredient) Drug/Non Drug [...] RESULTS OF CMP WITH CRISTOPHER العلي MD [id number] TSH 1.30 0.465-4.68 uIU/mL H-CBC Reviewed date:12/23/2024 02:32:36 PM Interpretation:mch 26.6, mo% 10.6 Performing Lab: Notes/Report: SHARE RESULTS WITH CRISTOPHER العيل MD [id number] WBC 5.8 4.8-10.8 K/mm3 RBC 4.73 4.20-5.40 [...] RESULTS OF CMP WITH CRISTOPHER العلي MD [id number] Patient Fasting? Y TRIG 177 30-150 mg/dl CHOL 196 140-200 mg/dl DLDL 99.73 100-129 mg/dL VLDL 35 0-40 mg/dL HDL 64 40-60 mg/dl CHLHDL 3.1 1-3.5 H-CMP Reviewed date:12/23/2024 04:34:51 PM Interpretation:Normal Performing Lab: Notes/Report: SHARE RESULTS OF CMP WITH CRISTOPHER العلي MD [id number] NA 137 136-145 mmol/L K 3.8 3.5-5.1 [...] RESULTS OF CMP WITH CRISTOPHER العلي MD [id number] VITB12 494 239-931 pg/mL TEN-stool panel Reviewed date:08/23/2024 10:55:56 AM Interpretation:see 08/22/24 Performing Lab: Notes/Report: see 08/22/24 H-PT/INR Reviewed date:08/31/2024 12:42:25 PM Interpretation: Performing Lab: Notes/Report: PT 73.4 10.1-12.5 seconds NOTIFICATION RESULT Results called to: KELLY OCONNOR on 08/31/24 at 1104 By Sofie Jacobsen MLT INR 8.00 0.9-1.1 CRITICAL RESULT Results called and read back/verified to: KELLY OCONNOR on 08/31/24 at 1104 By Sofie Jacobsen MLT INDICATION INR RANGE Therapy for DVT, PE, Atrial Fib, 2.0-3.0 Prophylaxis for VTE. Therapy for Mechanical Heart Valve, 2.5-3.5 Prevention of Sytemic Emolism secondary to AMI. PT/INR (in house) Reviewed date:09/08/2024 11:38:46 AM Interpretation: Performing Lab: Notes/Report: PT 12.1 INR 1.0 current dose on hold new dose 2 mg F & M, 4 mg AOD next check 2 weeks ideal INR 2-3 PT/INR (in house) Reviewed date:09/05/2024 02:48:36 PM Interpretation: Performing Lab: Notes/Report: PT 52.4 INR 4.4 current dose on hold new dose hold next check 5 days ideal INR 2-3 PT/INR (in house) Reviewed date:08/24/2024 01:06:26 PM Interpretation:2.9 Performing Lab: Notes/Report: 2.9 PT 34.2 INR 2.9 current dose 2mg MF and 4mg AOD new dose same next check 1 week Warfarin indication PE ideal INR 2-3 TEN-stool panel Reviewed date:08/24/2024 12:56:28 PM Interpretation:Abnormal, 08/24/2024 f/u OV Performing Lab: Notes/Report: Abnormal, 08/24/2024 f/u OV CBC Venipuncture (in house) Reviewed date:08/19/2024 01:01:29 PM Interpretation: Performing Lab: Notes/Report: wbc 7.1 3.5 - 10 lymph 23.8 15 - 50 mid 7.6 2 - 15 gran 68.6 35 - 80 rbc 4.76 3.5 - 5.5 hgb 1`2.8 11.5 - 16.5 hct 38.0 35 - 55 mcv 79.8 75 - 100 mch 26.9 25 - 35 mchc 33.7 31 - 38 platlet 324 100 - 400 PT/INR (in house) Reviewed date:08/19/2024 12:34:09 PM Interpretation:2.6 Performing Lab: Notes/Report: 2.6 PT 31.2 INR 2.6 current dose 2mg MF and 4mg AOD new dose same next check 1 week Warfarin indication PE ideal INR 2-3 TEN-stool panel Reviewed date:09/03/2024 11:58:11 AM Interpretation:Bacillus cereus, Cryptosporidium spp Performing Lab: Notes/Report: Bacillus cereus, Cryptosporidium spp Rapid Strep- Inhouse Reviewed date:08/15/2024 07:56:56 PM Interpretation:neg Performing Lab: Notes/Report: neg strep test neg PT/INR (in house) Reviewed date:08/15/2024 06:52:15 PM Interpretation: Performing Lab: Notes/Report: PT 62.2 INR 5.2 current dose 2 mg Thursday and Thursday 4 mg aod new dose hold next check 2 days Warfarin indication PE ideal INR 2-3 CBC Fingerstick (in house) Reviewed date:08/15/2024 06:51:19 PM Interpretation: Performing Lab: Notes/Report: wbc 9.5 3.5 - 10 lym 16.8 15 - 50 mid 4.9 2 - 15 gran 78.3 35 - 80 rbc 5.44 3.5 - 5.5 hgb 14.4 11.5 - 16.5 hct 45.0 35 - 55 mcv 82.6 75 - 100 mch 26.4 25 - 35 mchc 32.0 31 - 38 plat 184 100 - 400 Covid test (in house) Reviewed date:08/15/2024 06:50:41 PM Interpretation:neg Performing Lab: Notes/Report: neg Result: neg PT/INR (in house) Reviewed date:08/31/2024 10:27:45 AM Interpretation:Critical high Performing Lab: Notes/Report: Critical high PT >96.0 INR >8.0 current dose 2 mg M,F and 4 Mg AOD new dose hold next check Thursday Warfarin indication PE ideal INR 2-3 PT/INR (in house) Reviewed date:09/22/2024 12:19:39 PM Interpretation:3.4 Performing Lab: Notes/Report: 3.4 PT 41.2 INR 3.4 current dose 2mg MF and 4mg AOD new dose 2 mg MWF and 4mg AOD next check 2 weeks ideal INR 2-3 H-PT/INR Reviewed date:12/23/2024 02:32:36 PM Interpretation:pt 18.8, inr 1.78 Performing Lab: Notes/Report: PT 18.8 10.1-12.5 seconds INR 1.78 0.9-1.1 INDICATION INR RANGE Therapy for DVT, PE, Atrial Fib, 2.0-3.0 Prophylaxis for VTE. Therapy for Mechanical Heart Valve, 2.5-3.5 Prevention of Sytemic Emolism secondary to AMI. H-PT/INR Reviewed date:10/19/2024 04:34:35 PM Interpretation: Performing Lab: Notes/Report: PT 20.5 9.2-12.1 seconds INR 1.99 0.9-1.1 INDICATION INR RANGE Therapy for DVT, PE, Atrial Fib, 2.0-3.0 Prophylaxis for VTE. Therapy for Mechanical Heart Valve, 2.5-3.5 Prevention of Sytemic Emolism secondary to AMI. Influenza Screen (in house) Reviewed date:08/15/2024 06:50:58 PM Interpretation:neg Performing Lab: Notes/Report: neg results neg Medications Medication SIG (Take, Route, Frequency, Duration) Notes Start Date End Date Status Cephalexin 500 MG 1 tablet Orally Two times a day; Duration: 7 days 12/21/2024 Active Rosuvastatin Calcium 20 MG 1 tablet Oral ly Once a day; Duration: 90 days Active predniSONE 5 MG 1 tablet Orally Once a day; Duration: 30 day(s) Active Singulair 10 MG 1 tab(s) orally once a day; Duration: 90 days Active Zetia 10 MG 1 tab(s) orally once a day; Duration: 90 days Active Warfarin Sodium 4 MG 1 tab(s) orally onc e a day; Duration: 90 days Active amLODIPine Besylate 5 MG 1 tab(s) orally once a day; Duration: 90 days Active Calcium + Vitamin D3 600-5 MG-MCG 1 tab(s) orally twice a day; Duration: 30 day(s) Active Mupirocin 2 % 1 application Loading Dock Hand ally Twice a day 12/28/2024 Active CellCept 500 MG 2 tab(s) orally 2 ti mes a day; Duration: 30 day(s) Active Omeprazole 40 MG 1 cap(s) orally once a day; Duration: 90 days Active Immunizations Vaccine Route Administration Date Status Comme nts xFluzone (6mos and older)-trivalent IM Intramuscular 07/27/2013 Administered xFlu shot-36 months and older IM Intramuscular 08/27/2005 Administered xFlu shot-36 months and older IM Intramuscular 07/19/2007 Administered xFlu shot-36 months and older IM Intramuscular 07/08/2008 Administered xFlu shot-36 months and older IM Intramuscular 06/23/2011 Administered Tetanus Tdap-Adacel (over 7yrs) IM Intramuscular 11/06/2021 Administered Tetanus Dtap-Daptacel (under 7yrs) IM Intramuscular 03/06/2006 Administered Hepatitis A (adult) Unknown 07/03/2018 Administered Hepatitis A (adult) Unknown 07/08/2018 Administered Hepatitis A (adult) Unknown 02/03/2019 Administered Fluzone Quad (6months&older) IM Intramuscular 07/17/2021 Administered Fluzone Quad (6months&older) IM Intramuscular 06/04/2023 Administered Fluzone PF Quad (6-35 months) Unknown 07/11/2020 Administered Fluzone PF Quad (6-35 months) Unknown 07/22/2022 Administered COVID 19 Sha Unknown 11/21/2020 Administered Problems Problem Type SNOMED Code ICD Code Onset Dates Problem Status W/U Status Risk Notes Problem Sinusitis (13697363) Sinusitis (J32.9) Active confirmed Problem Essential hypertension (27312306) Essential hypertension (I10) Active confirmed Problem Sciatic nerve lesion (886974267) Piriformis syndrome of left side (G57.02) Active confirmed Problem Paresthesia (35666716) Paresthesia (R20.2) Active confirmed Problem Body mass index 30+ - obesity (599962286) BMI 30.0-30.9,adult (Z68.30) Active confirmed Problem 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 Problem Mixed hyperlipidemia (200027302) Mixed hyperlipidemia (E78.2) Active confirmed Problem Chronic maxillary sinusitis (22530754) Chronic maxillary sinusitis (J32.0) Active confirmed Problem Long-term current use of anticoagulant (897075249) 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) Active confirmed Problem Long-term current use of anticoagulant (197678082) longterm current use of anticoagulant therapy (Z79.01) Active confirmed Problem Long-term current use of anticoagulant (253571320) Long-term (current) use of anticoagulants, INR goal 2.0-3.0 (Z79.01) Active confirmed Problem Anemia (563227914) Anemia, unspecified type (D64.9) Active confirmed Problem Heterozygous Factor V Leiden mutation (318516469) Factor 5 Leiden mutation, heterozygous (D68.51) Active confirmed Problem Chronic lung disease (819599541) Chronic lung disease (J98.4) Active confirmed Problem Interstitial lung disease (923355955) Interstitial lung disease (J84.9) Active confirmed Problem Uncomplicated moderate persistent asthma (535633773) Moderate persistent asthma, unspecified whether complicated (J45.40) Active confirmed Problem Gastroesophageal reflux disease (975065507) Gastroesophageal reflux disease, unspecified whether esophagitis present (K21.9) Active confirmed Problem Primary hypertension (09816493) Primary hypertension (I10) Active confirmed Vital Signs Heart Rate 83 /min 12/28/2024 Blood pressure diastolic 82 mm Hg 12/28/2024 Height 62.50 in 12/28/2024 Blood pressure systolic 130 mm Hg 12/28/2024 Weight 168.2 lbs 12/28/2024 BMI 30.27 kg/m2 12/28/2024 Encounters Encounter Location Date Provider Diagnosis [facility] [address] [facility] [address] [place] [id number] 08/15/2024 Lisy Johnson Sinusitis J32.9 ; Na usea R11.0 ; longterm current use of anticoagulant therapy Z79.01 and Supratherapeutic INR R79.1 [facility] [address] [facility] [address] [place], [place] [id number] 08/19/2024 Joleen Ragsdale Insect bite (nonvenomous) of abdominal wall, initial encounter S30.861A ; Bitten or stung by nonvenomous insect and other nonvenomous arthropods, initial encounter W57.XXXA ; Diarrhea of presumed infectious origin R19.7 and terminal operations supervisor current use of anticoagulant therapy Z79.01 [facility] [address] [facility] [address] [place], [place] [id number] 08/22/2024 Joleen Ragsdale Diarrhea of presumed infectious origin R19.7 [facility] [address] [place], [place] [id number] 08/24/2024 Joleennataly Ragsdale 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 ; Bacteroides fragilis infection A49.8 and Long-term (current) use of anticoagulants, INR goal 2.0-3.0 Z79.01 [facility] [address] [place], [place] [id number] 08/31/2024 Joleen Ragsdale 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 ; Bacteroides fragilis infection A49.8 ; Long-term (current) use of anticoagulants, INR goal 2.0-3.0 Z79.01 and Supratherapeutic INR R79.1 [facility] [address] [facility] [address] [place], [place] [id number] 09/03/2024 Sherwin [place] Elevated INR R79.1 a nd 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 [facility] [address] [facility] [address] [place], [place] [id number] 09/08/2024 Sherwin [place] Hereditary deficienc y of other clotting factors D68.2 ; terminal operations supervisor current use of anticoagulant therapy Z79.01 and Diarrhea due to cryptosporidium A07.2 [facility] [address] [place], [place] [id number] 09/22/2024 Joleen Ragsdale terminal operations supervisor (current) use of anticoagulants Z79.01 [facility] [address] [facility] [address] [place] [id number] 12/21/2024 Joleen Ragsdale Spider bite wound, accidental or unintentional, initial encounter T63.301A ; Cellulitis of left lower extremity L03.116 ; Essential hypertension I10 ; Mixed hyperlipidemia E78.2 ; Anemia, unspecified type D64.9 ; B12 deficiency E53.8 and BMI 29.0-29.9,adult Z68.29 [facility]-[place] [address] José Miguel, [place] [id number] 12/28/2024 Joleen Ragsdale Essential hypertensi on I10 ; Mixed hyperlipidemia E78.2 ; Spider bite wound, accidental or unintentional, initial encounter T63.301A ; Cellulitis of left lower extremity L03.116 ; Anemia, unspecified type D64.9 ; B12 deficiency E53.8 and BMI 30.0-30.9,adult Z68.30 [facility]-[place] [address] José Miguel, [place] [id number] 09/01/2024 Joleen Ragsdale [facility] [address] José Miguel, [place] [id number] 10/05/2024 Joleennataly Ragsdale Long-term (current) use of anticoagulants, INR goal 2.0-3.0 Z79.01 [facility] [address] [place] [id number] 12/19/2024 Joleennataly Ragsdale Long-term (current) use of anticoagulants, INR goal 2.0-3.0 Z79.01 [facility] [address] José Miguel, [place] [id number] 12/23/2024 Nohelia Lora Assessments Encounter Date Diagnosis (ICD Code) Assessment Notes Treatment Notes Treatment Clinical Notes Section Notes 08/15/2024 Sinusitis (ICD-10 - J32.9) fluids, rest, supportive measures for fever/symptom relief 08/15/2024 Nausea (ICD-10 - R11.0) 08/19/2024 Insect bite (nonvenomous) of abdominal wall, initial encounter (ICD-10 - S30.861A) 08/19/2024 Bitten or stung by nonvenomous insect and other nonvenomous arthropods, initial encounter (ICD-10 - W57.XXXA) 08/24/2024 Cryptosporidial gastroenteritis (ICD-10 - 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 09/03/2024 Elevated INR (ICD-10 - R79.1) 09/03/2024 Cryptosporidial gastroenteritis (ICD-10 - A07.2) 09/08/2024 Hereditary deficiency of other clotting factors (ICD-10 - D68.2) 09/08/2024 longterm current use of anticoagulant therapy (ICD-10 - Z79.01) 09/22/2024 longterm (current) use of anticoagulants (ICD-10 - Z79.01) 10/05/2024 Long-term (current) use of anticoagulants, INR goal 2.0-3.0 (ICD-10 - Z79.01) 12/19/2024 Long-term (current) use of anticoagulants, INR goal 2.0-3.0 (ICD-10 - Z79.01) 08/22/2024 Diarrhea of presumed infectious origin (ICD-10 - R19.7) 12/21/2024 Cellulitis of left lower extremity (ICD-10 - L03.116) 12/21/2024 Spider bite wound, accidental or unintentional, initial encounter (ICD-10 - T63.301A) 12/28/2024 Essential hypertension (ICD-10 - I10) Discussed labs with patient. 12/28/2024 Mixed hyperlipidemia (ICD-10 - E78.2) 12/28/2024 Spider bite wound, accidental or unintentional, initial encounter (ICD-10 - T63.301A) 08/24/2024 Long-term (current) use of anticoagulants, INR goal 2.0-3.0 (ICD-10 - Z79.01) 12/21/2024 Essential hypertension (ICD-10 - I10) 09/08/2024 Diarrhea due to cryptosporidium (ICD-10 - A07.2) Improved 08/31/2024 Long-term (current) use of anticoagulants, INR goal 2.0-3.0 (ICD-10 - Z79.01) 08/19/2024 Diarrhea of presumed infectious origin (ICD-10 - R19.7) 08/15/2024 longterm current use of anticoagulant therapy (ICD-10 - Z79.01) repeat INR in 2 days; hold coumadin until then 08/15/2024 Supratherapeutic INR (ICD-10 - R79.1) 08/19/2024 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 Mack. Will give 5mg of Vit K today and 5mg tomorrow and will then hold the rest until her INR is rechecked on Thursday. 12/28/2024 Cellulitis of left lower extremity (ICD-10 - L03.116) 12/21/2024 Mixed hyperlipidemia (ICD-10 - E78.2) 12/21/2024 Anemia, unspecified type (ICD-10 - D64.9) 12/28/2024 Anemia, unspecified type (ICD-10 - D64.9) 12/21/2024 B12 deficiency (ICD-10 - E53.8) 12/28/2024 B12 deficiency (ICD-10 - E53.8) 12/28/2024 BMI 30.0-30.9,adult (ICD-10 - Z68.30) 12/21/2024 BMI 29.0-29.9,adult (ICD-10 - Z68.29) Plan Of Treatment Pending Test Test Name Order Date H-CBC 11/06/2021 H-Lipid Panel 03/14/2021 H-CMP 11/06/2021 H-CMP 03/14/2021 H-PT/INR 06/04/2021 H-PT/INR 10/05/2024 H-VITAMIN B12 03/14/2021 P-Lyme Disease (B. burgorferi), IgG/Ig M, RADHA, Serum 08/19/2024 P-Comprehensive Metabolic Panel (CMP) Insurance Providers Payer Name Payer Address Payer Phone Subscriber Number Group Number Insured Name Patient Relationship to Insured Coverage Start Date Coverage End Date FIDELIA HUTSON CROSSUE [facility] [address] [place] [address] [phone] [id number] NATHAN Spouse - patient is the spouse of the insured Medications Administered Medication Instructions Date of Administration Dosage Notes Depo- Medrol 40 mg/ml 12/18/2016 1 mL Medical (General) History Medical History History ICD Code Leiden factor V Rheumatoid Arthritis, + RA factor BOOP DVT Pulmonary Embolism Kidney Stones Rib fractures, Pneumothorax, Pneumomedia stinum, 06/11/2014 Lt Elbow Contusion, 06/11/2014 Asthma Surgical History Surgery Date(Month/Year) Lung Biopsy 2001 Sinus 01/2010 Kidney Stone Removal 05/2007 Sinus surgery 10/12/2008 Hospitalization History Reason Date(Month/Year) Bronchitis- [facility] 11/2015 Drug Reaction Kidney Stones 05/2007 Fell Off Horse- [facility] [place] 06/11/2014 Twisted Lt Ankle- [facility] 07/2014
[2025-06-20 07:51] LABS: Bilirubin,Urine Negative (Negative); Color,Urine YELLOW (Yellow); Glucose,Urine (UA) Negative (Negative); Ketones,Urine Negative (Negative); Leukocyte Esterase,Urine TRACE (Negative); PH,Urine 5.5 (5.0-8.5); Protein,Urine 1+ (Negative); Specific Gravity, Urine 1.025 (1.005-1.030); Urobilinogen,Urine 0.2 EU/dl (0.2)
--- NOTE | 2025-06-20 07:55 | ED_ITS ---
Discharge Plan Disposition Patient Disposition: Home, Self-Care Condition: Good Prescriptions Prescriptions: New tamsulosin 0.4 mg capsule 0.4 mg PO DAILY Qty: 14 0RF ondansetron 4 mg tablet,disintegrating 4 mg PO Q6H PRN (Reason: nausea and vomiting) Qty: 20 0RF oxycodone 5 mg tablet 5 mg PO Q8H PRN (Reason: pain) Qty: 12 0RF No Action mycophenolate mofetil 500 mg tablet 500 mg PO BID ezetimibe 10 mg tablet 10 mg PO DAILY azithromycin 250 mg tablet See Rx Instructions PO .COMPLEX Qty: 6 0RF Rx Instructions: For 250 mg dose pack: take 500 mg today (day 1), then 250 mg for 4 days (days 2-5) PO benzonatate 100 mg capsule 100 mg PO TID PRN (Reason: cough) Qty: 30 0RF fluticasone propionate [Flonase Allergy Relief] 50 mcg/actuation spray,suspension 2 spray intranasal DAILY Qty: 16 2RF Rx Instructions: administer into each nostril daily warfarin 4 mg tablet 4 mg PO DAILY 90 Days Qty: 90 Patient Comments: omeprazole 20 mg capsule,delayed release(DR/EC) 20 mg PO DAILY 90 Days Qty: 90 Patient Comments: calcium carbonate [Calcium 600] 600 mg calcium (1,500 mg) tablet 600 mg PO BID montelukast 10 MG tablet 10 mg PO PM prednisone 10 mg tablet 5 mg PO DAILY amlodipine 5 mg tablet 5 mg PO DAILY rosuvastatin 20 mg tablet 20 mg PO HS cyclobenzaprine 10 mg tablet 10 mg PO TID PRN (Reason: muscle spasm) 5 Days Qty: 15 0RF lidocaine 4 % adhesive patch,medicated 1 patch topical DAILY Qty: 5 0RF Rx Instructions: may leave on for up to 12 hrs Referrals Follow up/Referrals: Joleen Ragsdale PA [Primary Care Provider, Medical] - See instructions Activity Restrictions/Add. Instructions Additional Instructions/Restrictions: You have a right sided kidney stone that is on the verge of passing into your bladder. You may take Tylenol and 400-600 mg of Ibuprofen at every 8 hours at home for pain. If you have breakthrough pain you can take Oxycodone. Additionally, you should take Tamsulosin daily to help encourage passage of the stone. If you have are still having symptoms in 1 week, develop fevers or chills, worsening urinary symptoms, or any other new or worsening symptoms please return to the ER for further evaluation. Clinical Impressions Clinical Impression: Calculus of distal right ureter Instructions Patient Instructions: Kidney Stones in Adults Print Language Print Language: [place] Discharge ED Provider: Agapito Prakash General Adult HPI General Chief complaint: Abdominal Pain Stated complaint: lower right abdominal pain, vomiting Time Seen by Provider: 06/20/25 07:41 Mode of Arrival: Ambulatory Source of Information: Patient Description of Symptoms (Recalled from ER Triage Doc. by RN): rlq pain started about 6 hours ago. had an episode of vomiting. denies urinary pain. hx of kidney stones. on warfarin History of Present Illness HPI narrative: This is a 55-year-old male female patient, with past medical history of hyperlipidemia, lupus, recurrent kidney stones, and factor V Leiden on warfarin, who is presenting to the emergency department today for evaluation of right lower quadrant abdominal pain. Patient states that her pain began roughly 6 hours ago. She states that with her typical kidney stones her pain will start in the right flank and migrate down to the right lower quadrant of the abdomen, however this pain was super sudden in onset and did not originate in the flank. She states that she chronically has hematuria but she is not currently having any dysuria or urinary frequency. She is not having diarrhea, hematochezia, or melena. She is significantly nauseated and is vomiting. Related Data Home Medications ?Medication ?Instructions ?Recorded ?Confirmed calcium carbonate (Calcium 600) 600 mg PO BID Suppleme nt 03/10/18 06/05/25 mycophenolate mofetil 500 mg tablet 500 mg PO BID LUPU S 10/29/18 06/05/25 omeprazole 20 mg capsule,delayed 20 mg PO DAILY GERD 9 0 days #90 10/29/18 06/05/25 release caps warfarin 4 mg tablet 4 mg PO DAILY FACTOR V, DVT/ PE 90 10/29/18 06/05/25 days #90 tabs montelukast 10 mg tablet 10 mg PO PM Allergy symptoms 10/13/19 06/05/25 amlodipine 5 mg tablet 5 mg PO DAILY 10/17/2306/05 prednisone 10 mg tablet 5 mg PO DAILY 10/17/2306/05 rosuvastatin 20 mg tablet 20 mg PO HS 10/17/23 5 ezetimibe 10 mg tablet 10 mg PO DAILY 03/23/2405/16 Previous Rx's ?Medication ?Instructions ?Recorded cyclobenzaprine 10 mg tablet 10 mg PO TID PRN muscle s pasm 5 11/17/24 days #15 tabs lidocaine 4 % topical patch 1 patch topical DAILY #5 e a 11/17/24 azithromycin 250 mg tablet See Rx Instructions PO .COM PLEX #6 06/05/25 tabs benzonatate 100 mg capsule 100 mg PO TID PRN cough #30 caps 06/05/25 fluticasone propionate 50 2 spray intranasal DAILY #16 grams 06/05/25 mcg/actuation nasal spray,suspension (Flonase Allergy Relief) ondansetron 4 mg disintegrating 4 mg PO Q6H PRN nausea and 06/20/25 tablet vomiting #20 tabs oxycodone 5 mg tablet 5 mg PO Q8H PRN pain #12 tab s 06/20/25 tamsulosin 0.4 mg capsule 0.4 mg PO DAILY #14 caps 04/07 Allergies Allergy/AdvReac Type Severity Reaction Status Date / Time hydroxychloroquine Allergy Mild Rash Verified 06/05/25 13:40 moxifloxacin (From Avelox) Allergy Mild Rash Verified 06/05/25 13:40 sulindac Allergy Mild Rash Verified 06/05/25 13:40 PFSH PFSH Disclaimer: The information contained in this section may have been updated after the patient was seen, as this information can be updated by other users. Medical History GERD (gastroesophageal reflux disease) Other abnormality of red blood cells Low reticulocyte count Factor V Leiden Hyperlipidemia Rotator cuff tear, left Vitamin B deficiency Folic acid deficiency anemia Surgical History H/O sinus surgery History of lung surgery Family History Other No significant family history Social History Smoking Status: Never smoker alcohol intake: never substance use type: denies use current occupational status: other Travel in the last 8 weeks?: None household members: spouse housing: house Have you lived/traveled outside [place] in past 30 days?: No Contact w/someone who lives/traveled outside [place] past 30 days?: No Exposure to someone with infectious disease in past 14 days?: No Do you have a fever (greater than 100.4 F or 38 C)?: No Have you tested positive for COVID-19?: No Exposed to someone with COVID-19 in past 14 days?: No Do you have a sore throat?: No Do you have a cough?: No Do you have any weakness?: No Do you have any diarrhea?: No Are you experiencing any unusual bleeding?: No Do you have any muscle aches/pain?: No Do you have any abdominal pain?: No Are you experiencing loss of taste or smell?: No Other Medical History Have you received the Flu Vaccine for this season: Yes Have you received the Pneumonia Vaccine: Yes ROS Obtained: Yes Systems reviewed as appropriate & no additional complaints except as documented Physical Exam General General appearance: other (See MDM) Respiratory Respiratory exam: Present other (See MDM) Cardiovascular Cardiovascular exam: Present other (See MDM) Neurological Exam Neurological exam: Present other (See MDM) Medical Decision Making Medical Records Medical records reviewed: Yes I reviewed the patient's medical records. Screening: Per USPSTF and CDC recommendations, given the prevalence of disease in our region, it is our hospital?s policy to screen for HIV and viral Hepatitis for all patients aged 18 and over and those with ongoing risk factors. Cristian Inquiry Pt receiving controlled substance: Yes Cristian was queried for this patient: Yes Risks and benefits of using a controlled substance: were discussed with pt by me Vital Signs: 06/20/25 07:43 06/20/25 07:45 06/20/25 08:00 Temperature 98.5 F Temperature Source Oral Pulse Rate 95 H 92 H Pulse Rate [Right] 90 Respiratory Rate 20 Blood Pressure 195/114 H 181/96 H Blood Pressure [Right Arm] 195/115 H Blood Pressure Mean [Right Arm] 141 02 Sat by Pulse Oximetry 98 99 98 Oxygen Delivery Method Room Air 06/20/25 08:30 Temperature Temperature Source Pulse Rate 86 Pulse Rate [Right] Respiratory Rate Blood Pressure 185/95 H Blood Pressure [Right Arm] Blood Pressure Mean [Right Arm] 02 Sat by Pulse Oximetry 94 L Oxygen Delivery Method Lab Data Lab Results 06/20/25 07:41: Urine Color Yellow, Urine Appearance Clear, Urine pH 5.5, Ur Specific [place] 1.025, Urine Protein 1+ A, Urine Glucose (UA) Negative, Urine Ketones Negative, Urine Blood 3+ A, Urine Nitrate Negative, Urine Bilirubin Negative, Urine Urobilinogen 0.2, Ur Leukocyte Esterase Trace, Urine RBC 50-100, Urine WBC Occasional, Ur Squamous Epith Cells None, Urine Bacteria Trace 06/20/25 07:50: WBC 11.2 H, RBC 4.70, Hgb 12.7, Hct 39.4, MCV 83.8, MCH 27.0, MCHC 32.2, RDW 14.1, Plt Count 295, MPV 9.2, Neut % (Auto) 73.0, Lymph % (Auto) 17.5, [place] % (Auto) 8.2, Eos % (Auto) 0.5, Baso % (Auto) 0.4, Neut # (Auto) 8.1 H, Lymph # (Auto) 2.0, [place] # (Auto) 0.9, Eos # (Auto) 0.1, Baso # (Auto) 0.1, P T 24.5 H, INR 2.35 H, Sodium 138, Potassium 3.7, Chloride 100, Carbon Dioxide 29, Anion Gap 12.7, BUN 13, Creatinine 0.90, Estimated Creat Clear 82, Estimated GFR 65, Est GFR ( Amer) 79, Glucose 138 H, Calcium 9.3, Magnesium 1.9, Total Bilirubin 0.3, AST 24, ALT 26, Alkaline Phosphatase 94, Total Protein 7.1, Albumin 4.1, Globulin 3.0, Albumin/Globulin Ratio 1.4, Lipase 83, HCV Ab FELIX w/Rflx PCR Qn Negative, HIV Ag/Ab Combo Qual Negative 06/20/25 07:50 06/20/25 07:50 Orders (Tests/Meds): ED MEDICATIONS Generic Name Dose Route Start Last Admin Trade Name Freq PRN Reason Stop Dose Admin Sodium Chloride 10 ml 06/20/25 08:25 06/20/25 08:27 Sodium Chloride 0.9% 10ml Syr (Rad Only) IV 07/20/25 08:24 10 ml NEEDED PRN Administration Maintain IV Site Discontinued Medications Generic Name Dose Route Start Last Admin Trade Name Freq PRN Reason Stop Dose Admin Hydromorphone HCl 1 mg 06/20/25 07:46 06/20/25 07:59 Hydromorphone 2mg/Ml Syringe IV 06/20/25 07:47 1 mg ONCE ONE Administration Lactated Ringer's 1,000 mls @ 999 mls/hr 06/20/25 07:53 06/20/25 07:58 Lactated Ringer's 1000 Ml Bag IV 06/20/25 08:53 999 mls/hr .Q1H1M ONE Administration Iopamidol 75 ml 06/20/25 08:25 06/20/25 08:27 Iopamidol-370 (76%);100ml Bottle IV 06/20/25 08:26 75 ml ONCE ONE Administration Ondansetron HCl 4 mg 06/20/25 07:46 06/20/25 07:58 Ondansetron 4mg/2ml Vial IV 06/20/25 07:47 4 mg ONCE ONE Administration ORDERS Category Date Time Status CT abdomen pelvis w con Stat Cat Scan 06/20/25 07:45 Completed CBC w/Auto Diff [Complete Blood Count Auto Diff] Stat Lab 06/20/25 07:50 Completed CMP [Comprehensive Metabolic Panel] Stat Lab 06/20/25 07:50 Completed HIV Combo Stat Lab 06/20/25 07:50 Completed Hepatitis C Ab Qual. W/ RFX Stat Lab 06/20/25 07:50 Completed Lactic Acid Stat Lab 06/20/25 07:45 Ordered Lipase Stat Lab 06/20/25 07:50 Completed Magnesium Stat Lab 06/20/25 07:50 Completed PT INR [Prothrombin Time INR] Stat Lab 06/20/25 07:50 Completed UA [Urinalysis and Microscopic] Stat Lab 06/20/25 07:41 Completed Urine Culture Stat Micro 06/20/25 07:50 Received Medical Decision Narrative: In summary, this is a 55-year-old female patient who is presenting to the emergency department today for evaluation of sudden onset right lower quadrant abdominal pain 6 hours ago. Comorbidities include a past medical history of hyperlipidemia, lupus, and factor V Leiden on warfarin. On initial evaluation of the patient was in acute painful distress but was overall nontoxic in appearance. They are hemodynamically stable, saturating well room air, and are neurologically intact. On physical examination her heart and lungs are clear to auscultation bilaterally. Mucous membranes appear dry. She has focal right lower quadrant abdominal tenderness on exam. No CVA tenderness bilaterally. She has no lower extremity erythema or edema. Differential diagnosis includes right sided ureterolithiasis, pyelonephritis, urinary tract infection, appendicitis, right-sided diverticulitis, intra- abdominal abscess, small bowel obstruction, among others Workup is initiated with hematologic labs as well as a CT scan of the abdomen and pelvis. We have administered 1 L of lactated Ringer's, 1 mg of Dilaudid, and 4 mg of Zofran for symptomatic control. Labs were obtained and demonstrated mild leukocytosis of 11.2, no actionable anemia. INR was obtained and is within goal of 2-3. CMP interpreted by me demonstrates no electrolyte derangements or evidence of acute kidney injury. No transaminitis. Lipase is normal. Urinalysis was personally interpreted by me as well and demonstrates trace leukocyte esterase and no nitrates. Occasional white blood cells and trace bacteria. I do not feel that this is consistent with urinary tract infection. CT scan of the abdomen and pelvis was personally turbid by me and demonstrates a 6 mm stone at the ureterovesicular junction. Official radiology read is in agreement. I have informed the patient of her results. On repeat assessment she is resting comfortably in no acute distress and her pain is controlled. She is allergic to sulindac so we did not administer Toradol here in the emergency department. We have had a shared decision-making discussion about risk and benefits of taking ibuprofen in the setting of being on warfarin. I feel that a short course of ibuprofen at home is reasonable and have recommended that she take low-dose ibuprofen at home for the next week. I have also asked her to supplement with Tylenol for pain. In the event that she has breakthrough pain we have prescribed oxycodone to the patient and I have also prescribed tamsulosin to help encourage passage of the stone. I have given strict return precautions in the event that she experiences any infectious symptoms including fever, chills, burning with urination, or worsening hematuria. I have also encouraged that she return to the emergency department if she is still symptomatic in 1 week and has not passed a stone. At this time all questions have been answered and all parties are agreeable with the decision to discharge home Critical Care Critical Care Time Critical Care Time: No
[2025-06-20] MEDS: ONDANSETRON 4MG/2ML VIAL 4 MG IV (07:58)
[2025-06-20] MEDS: LACTATED RINGERS 1000ML 1,000 ML 999 ML IV (07:58)
[2025-06-20] MEDS: HYDROMORPHONE 2MG/ML SYRINGE 1 MG IV (07:59)
[2025-06-20 08:00] VITALS: BP 181/96; PULSE 92; O2SAT 98
[2025-06-20 08:01] LABS: Hematocrit 39.4 % (37.0-47.0); Hemoglobin 12.7 g/dL (12.2-16.2); Immature Granulocytes % 0.4 %; Mean Corpuscular HGB Conc 32.2 g/dL (31.8-35.4); Mean Corpuscular Hemoglobin 27.0 pg (27.0-31.2); Mean Corpuscular Volume 83.8 fl (81-99); Nucleated Red Blood Cells % 0 %; Platelet Count 295 K/mm3 (142-424); Red Blood Count 4.70 M/mm3 (4.20-5.40); Red Cell Distribution Width-SD 43.3 fL; White Blood Count 11.2 K/mm3 (4.8-10.8)
[2025-06-20 08:11] LABS: Albumin Level 4.1 g/dl (3.5-5.0); Chloride 100 mmol/L (98-107)
[2025-06-20 08:12] LABS: Potassium 3.7 mmoL/L (3.5-5.1); Sodium 138 mmol/L (136-145)
[2025-06-20 08:14] LABS: Alanine Aminotransferase 26 U/L (12-78); Albumin/Globulin Ratio 1.4 (1.1-1.8); Alkaline Phosphatase 94 U/L (38-126); Anion Gap 12.7 mEq/L (5-15); Aspartate Amino Transferase 24 U/L (14-36); Bilirubin,Total 0.3 mg/dl (0.2-1.3); Blood Urea Nitrogen 13 mg/dl (7-17); Carbon Dioxide 29 mmol/L (22.0-30.0); Creatinine Clearance Estimated 82 mL/min (50-200); Creatinine,Serum 0.90 mg/dl (0.52-1.04); Estimated Glomerular Filt Rate 65 ml/min (>60); GFR (African American) 79 ML/MIN (>60); Globulin 3.0 g/dL (1.3-3.2); Total Protein,Serum 7.1 g/dl (6.3-8.2)
[2025-06-20 08:15] LABS: Calcium 9.3 mg/dl (8.4-10.2); Glucose 138 mg/dl (74-100); Lipase 83 U/L (23-300); Magnesium 1.9 mg/dl (1.6-2.3)
[2025-06-20 08:17] LABS: INR 2.35 (0.9-1.1); Prothrombin Time 24.5 seconds (10.1-12.5)
[2025-06-20 08:26] LABS: RBC,Urine 50-100 #/hpf (0-3); WBC,Urine Occasional #/hpf (0-3)
[2025-06-20 08:27] LABS: Bacteria,Urine Trace /lpf
[2025-06-20] MEDS: IOPAMIDOL-370 (76%);100ML BOTTLE 75 ML IV (08:27)
[2025-06-20] MEDS: SODIUM CHLORIDE 0.9% 10ML SYR (RAD ONLY) 10 ML IV (08:27)
[2025-06-20 08:30] VITALS: BP 185/95; PULSE 86; O2SAT 94
[2025-06-20 09:00] VITALS: BP 186/101; PULSE 79; O2SAT 98
[2025-06-20 09:39] LABS: Hepatitis C Ab Qual. W/ RFX NEGATIVE (Negative)
[2025-06-20 09:56] VITALS: BP 170/80; PULSE 85; RESP 16; TEMP 36.7; O2SAT 96
== END 2025-06-20 10:00 | disposition home or self-care (01) ==
PROVIDERS: Emergency Provider Student in an Organized Health Care Education/Training Program; PCP Physician Assistant
DX: N13.0 Hydronephrosis with ureteropelvic junction obstruction (principal); N13.4 Hydroureter; R10.31 Right lower quadrant pain; R11.2 Nausea with vomiting, unspecified
CPT/HCPCS: 74177; 80053; 81001; 83690; 83735; 85025; 85610; 86803; 87086; 87389; 96361; 96374; 96375; 99285; J1171; J2405; J7120; Q9967